=== PATIENT | female | born 1965 | race Caucasian/White ===

== ENCOUNTER 2017-04-23 21:16 | Inpatient (IN) | payer OTHER, SELFPAY ==
[2017-04-23 21:17] VITALS: BP 157/83; PULSE 107; RESP 16; TEMP 37.7; O2SAT 97; BMI 63.7
--- NOTE | 2017-04-23 22:00 | ED.VISSUMM ---
- ER Visit Summary Date of Service: 04/23/17 Chief Complaint: Bilateral lower extremity cellulitis History of Present Illness: The patient is a 52 F known history of coj-ddeaxea-cujgdvjjn diabetes, hypertension and chronic bilateral lower extremity lymphedema. On Sunday the patient started having discomfort both lower extremities and developed redness and now a fever. Was seen and started on Bactrim. Patient states the legs are getting worse and she started to have myalgias. Denies vomiting or diarrhea. No prior history of DVT. Physical Examination: Well-appearing middle-age female. Vital signs are stable. Temperature 99.8. Pulse ox 97% on room air no signs of hypoxia. HEENT exam unremarkable neck nontender no lymphadenopathy. Lungs clear to auscultation bilaterally. Heart regular rhythm rate about 105 no murmur. Abdomen morbidly obese but soft and nontender. No peritoneal signs. Moving all 4 extremities neurovascular intact. 1+ chronic lymphedema both lower extremities with cellulitis on both lower extremities from mid tibia to the ankles. No sloughing of skin. No vesicles. No signs of necrotizing fasciitis. She is neurovascular intact with normal touch sensation DP pulses. Normal range of motion. There is no inguinal lymphadenopathy. There is no streaking above the knee. Neurologic exam normal. Test Results: CBC normal white count of 10 H&H 12 and 40. No bands. Electrolytes unremarkable. Normal creatinine and gap. Blood sugar 152. Repeat exam patient is doing well at 2235. She is awaiting admission. Emergency Department Course and Treatment: Patient has bilateral lower extremity cellulitis is getting worse despite outpatient antibiotics. Patient will be started on IV Zosyn and I will speak to the hospitalist about admission. I very spoken to Dr. Perez. Treatment Plan: Admission for IV antibiotics for cellulitis Disposition: Admission Impression: Acute bilateral lower extremity cellulitis Chronic lymphedema History of hve-tcgutvt-ryozwebmy diabetes This note was generated with [employer] dictation software. It may contain incorrect words, spelling, and punctuation that were not noted in review of the chart prior to signing ED Disposition - Plan for ED Patient: Chief Complaint: Cellulitis Referrals: Laazrus Arcos MD [Primary Care Provider] -
--- NOTE | 2017-04-23 22:03 | ED.DCSUM_ITS ---
- ER Visit Summary Date of Service: 04/23/17 Chief Complaint: Bilateral lower extremity cellulitis History of Present Illness: The patient is a 52 F known history of non-insulin- dependent diabetes, hypertension and chronic bilateral lower extremity lymphedema. On Sunday the patient started having discomfort both lower extremities and developed redness and now a fever. Was seen and started on Bactrim. Patient states the legs are getting worse and she started to have myalgias. Denies vomiting or diarrhea. No prior history of DVT. Physical Examination: Well-appearing middle-age female. Vital signs are stable. Temperature 99.8. Pulse ox 97% on room air no signs of hypoxia. HEENT exam unremarkable neck nontender no lymphadenopathy. Lungs clear to auscultation bilaterally. Heart regular rhythm rate about 105 no murmur. Abdomen morbidly obese but soft and nontender. No peritoneal signs. Moving all 4 extremities neurovascular intact. 1+ chronic lymphedema both lower extremities with cellulitis on both lower extremities from mid tibia to the ankles. No sloughing of skin. No vesicles. No signs of necrotizing fasciitis. She is neurovascular intact with normal touch sensation DP pulses. Normal range of motion. There is no inguinal lymphadenopathy. There is no streaking above the knee. Neurologic exam normal. Test Results: CBC normal white count of 10 H&H 12 and 40. No bands. Electrolytes unremarkable. Normal creatinine and gap. Blood sugar 152. Repeat exam patient is doing well at 2235. She is awaiting admission. Emergency Department Course and Treatment: Patient has bilateral lower extremity cellulitis is getting worse despite outpatient antibiotics. Patient will be started on IV Zosyn and I will speak to the hospitalist about admission. I very spoken to Dr. Perez. Treatment Plan: Admission for IV antibiotics for cellulitis Disposition: Admission Impression: Acute bilateral lower extremity cellulitis Chronic lymphedema History of lya-gqaamdb-txgvkwhql diabetes This note was generated with [employer] dictation software. It may contain incorrect words, spelling, and punctuation that were not noted in review of the chart prior to signing ED Disposition - Plan for ED Patient: Chief Complaint: Cellulitis Referrals: Lazarus Arcos MD [Primary Care Provider] -
[2017-04-23 22:14] LABS: Absolute Neutrophil Count 8.9 X10^3/uL (2.0-7.7); Basophil# 0.01 X10^3/uL; Basophil% 0.1 % (0-1); Eosinophils% 1.9 % (0-5); Hematocrit 40.1 % (37-47); Hemoglobin 12.7 g/dl (12.0-15.0); Lymphocyte % 9.6 % (19-41); Mean Corp Hgb Conc 31.7 g/gl (32-36); Mean Corpuscular Hgb 29.7 pg (27.0-32.0); Mean Corpuscular Volume 93.9 fL (81-99); Mean Platelet Vol. 11.3 fl (6.2-12.0); Monocyte# 0.37 X10^3/uL; Monocyte% 3.5 % (0-10); Neutrophil # 8.86 X10^3/uL (2.7-7.7); Neutrophil % 84.6 % (47-70); Platelet Count 256 K/mm3 (150-450); RBC Distribution Width CV 14.7 % (11.6-14.6); RBC Distribution Width SD 49.8 fl (35.1-43.9); Red Blood Count 4.27 M/mm3 (4.2-5.4); White Blood Count 10.5 K/mm3 (4.4-11.0)
[2017-04-23 22:16] LABS: POSITIVE COUNT NO; POSITIVE DIFFERENTIAL NO; POSITIVE MORPHOLOGY NO
[2017-04-23 22:24] VITALS: BP 171/84; PULSE 112; RESP 18; O2SAT 98
[2017-04-23 22:26] LABS: Anion Gap 8 (5-15); BUN 21 mg/dL (7-18); BUN/Creat Ratio 25.6 RATIO (10-20); Calcium,Total 8.9 mg/dL (8.5-10.1); Chloride 100 mmol/L (98-107); Creatinine, Serum 0.82 mg/dL (0.55-1.02); EST Glomerular Filtration Rate 77 mL/min (>60); Est Glom Filt Rate - Afr Amer 94 mL/min (>60); Estimated Creatinine Clearance 74.28 ml/min; Glucose 152 mg/dL (70-110); Potassium 3.9 mmol/L (3.5-5.1); Sodium Level 138 mmol/L (136-145)
[2017-04-23] MEDS: 0.9% Normal Saline 1,000 ML 1000 ML IV (22:42)
[2017-04-23] MEDS: Ondansetron 4 MG/2 ML Vial IV (22:43)
--- NOTE | 2017-04-23 23:16 | HP.PCM_ITS ---
Problem List (1) Cellulitis Status: Acute Qualifiers: Site of cellulitis: extremity Laterality: unspecified laterality (2) Obesity, morbid, BMI 50 or higher Status: Chronic (3) Diabetes Status: Chronic Qualifiers: Diabetes mellitus complication status: with unspecified complications (4) HTN (hypertension) Status: Chronic (5) GERD (gastroesophageal reflux disease) Status: Chronic (6) Sleep apnea Status: Chronic History of Present Illness Date of Admission: 04/23/17 Chief Complaint: bilateral lower leg skin infection The patient is a 52 year old female patient who presents to the ER with worsening lower leg skin infection. She was seen yesterday in the urgent care setting and placed on Bactrim DS. She has taken three doses as an outpatient but the redness, swelling and pain has increased. Her feet and legs to mid calf are exquisitely tender. She has developed fever and chills. No blood cultures were drawn due to the fact that antibiotic therapy had already been initiated. She has comorbid conditions including diabetes and morbid obesity and lymphedema. She will be admitted to general medical floor for failure of outpatient therapy. Past Medical History Past Medical History (Chronic Problems): Chronic Problems Obesity, morbid, BMI 50 or higher (Chronic) Diabetes (Chronic) HTN (hypertension) (Chronic) GERD (gastroesophageal reflux disease) (Chronic) Sleep apnea (Chronic) Allergies ciprofloxacin [From Cipro] Allergy (Verified 04/23/17 21:17) Unknown ciprofloxacin HCl [From Cipro] Allergy (Verified 04/23/17 21:17) Unknown erythromycin base [Erythromycin Base] Allergy (Verified 04/23/17 21:17) Unknown metronidazole [From Flagyl] Allergy (Verified 04/23/17 21:17) Anaphylaxis oxycodone Allergy (Verified 04/23/17 21:17) Itching Penicillins Allergy (Verified 04/23/17 21:17) Unknown Tetracyclines Allergy (Verified 04/23/17 21:17) Unknown meloxicam [From Mobic] Adverse Reaction (Verified 04/23/17 21:17) Other states elevated bp Home Medications: Ambulatory Orders Medication Instructions Recorded Aspirin [Aspirin, Baby] 81 mg PO DAILY@0800 07/01/13 Celecoxib [Celebrex] 100 mg PO BID 07/01/13 Levothyroxine [Synthroid] 150 mcg PO DAILY 07/01/13 Valsartan/Hydrochlorothiazide 1 tablet PO DAILY 07/01/13 [Diovan Hct 160-25 MG Tablet] Loratadine [Claritin] 10 mg PO DAILY 12/12/13 Metformin HCl [Glucophage] 250 mg PO QHS 12/12/13 Lansoprazole [Prevacid] 30 mg PO BID 12/30/15 Psychiatric History: No pertinent psych hx 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 Denies: Weight Change HEENT: Denies: Head Aches, Sinus Congestion, Sinus Drainage Cardiovascular: Denies: Chest Pain, Palpitations Respiratory: Denies: Cough, Shortness of breath at rest, Sputum production Gastrointestinal: Denies: Abdominal Pain, Nausea, Vomiting Genitourinary: Denies: Dysuria Musculoskeletal: Denies: Joint Pain, Joint Tenderness Skin: Reports: Wounds. Denies: Rash Neurological: Denies: Numbness, Tingling, Focal weakness Psychiatric: Denies: Anxiety, Depression, Homicidal Ideations, Suicidal Ideations Hematologic/ Lymphatic: Denies: Easy Bruising, Easy Bleeding VTE Information - Inpt Only VTE Present on Admission: No VTE Mechan Device Prophylaxis: None VTE Pharm Prophylaxis ordered?: Yes Patient Problems: Active and Suspected Problems Cellulitis (Acute) - Physical Exam General: Alert, Oriented x3, Cooperative, - - obese HEENT: Atraumatic, Normocephalic Neck: Supple Lungs: Clear to auscultation, Normal air movement Cardiovascular: Regular rate, Regular Rhythm, Normal S1, Normal S2, No murmurs Abdomen: Bowel Sounds Present, Soft, Non Tender, Obese Extremities: Edema Skin: Ulcer/ Wound - erythema surrounding both feet and circumferentially around the legs to mid calf level Musculoskeletal: No Tenderness to Palpation of Joints or Extremities Neurological: Neuro grossly intact Psych/Mental Status: Normal Affect, Appropriate Vital Signs Temp Pulse Resp BP Pulse Ox 99.8 F H 107 H 16 157/83 H 97 04/23/17 21:17 04/23/17 21:17 04/23/17 21:17 04/23/17 21:17 04/23/17 21:17 Oxygen Delivery Method Room Air Weight: 395 lb Body Mass Index (BMI) 63.7 Laboratory Tests Past 24 Hrs 04/23/17 04/23/17 21:30 21:30 WBC 10.5 RBC 4.27 Hgb 12.7 Hct 40.1 MCV 93.9 MCH 29.7 MCHC 31.7 L RDW 14.7 H RDW Differential 49.8 H Plt Count 256 MPV 11.3 Immature Gran % (Auto) 0.300 Neut % (Auto) 84.6 H Lymph % (Auto) 9.6 L Hudspeth % (Auto) 3.5 Eos % (Auto) 1.9 Baso % (Auto) 0.1 Absolute Neuts (auto) 8.9 H Absolute Lymphs (auto) 1.00 Total Counted Not Reportable Sodium 138 Potassium 3.9 Chloride 100 Carbon Dioxide 30.0 Anion Gap 8 BUN 21 H Creatinine 0.82 Estim Creat Clear Calc 74.28 Est GFR (MDRD) Af Amer 94 Est GFR (MDRD) Non-Af 77 BUN/Creatinine Ratio 25.6 H Glucose 152 H Calcium 8.9 Assessment/Plan Active and Suspected Problems Cellulitis (Acute) Chronic Problems Obesity, morbid, BMI 50 or higher (Chronic) Diabetes (Chronic) HTN (hypertension) (Chronic) GERD (gastroesophageal reflux disease) (Chronic) Sleep apnea (Chronic) Plan - admit to medical surgical floor - IV Vancomycin and Zosyn - CBC, BMP in am - oxycodone 5mg q 6hr prn pain - continue routine home medications - LMWH for DVT prophylaxis - SSI - consider ID consult in AM Code Visit Inpatient E&M: 38493 Init Hosp L3
[2017-04-23 23:56] VITALS: PULSE 106; RESP 18; O2SAT 97
[2017-04-24 01:12] VITALS: BP 131/79; PULSE 105; RESP 20; TEMP 37.9; O2SAT 97
[2017-04-24] MEDS: Acetaminophen 325 MG Tablet 650 MG PO ×3 (01:22→17:03)
[2017-04-24 01:40] VITALS: BMI 64.4
[2017-04-24 01:50] VITALS: BMI 64.4
[2017-04-24 01:59] LABS: Hemoglobin A1c 7.3 % (4.2-6.3)
[2017-04-24] MEDS: Ketorolac 30 MG/ML Syringe IV ×3 (04:08→22:22)
[2017-04-24 05:44] VITALS: BP 91/40; PULSE 102; RESP 14; TEMP 36.9; O2SAT 96
[2017-04-24 06:33] LABS: Anion Gap 9 (5-15); BUN 23 mg/dL (7-18); BUN/Creat Ratio 24.4 RATIO (10-20); Calcium,Total 8.2 mg/dL (8.5-10.1); Chloride 102 mmol/L (98-107); Creatinine, Serum 0.94 mg/dL (0.55-1.02); EST Glomerular Filtration Rate 66 mL/min (>60); Est Glom Filt Rate - Afr Amer 80 mL/min (>60); Estimated Creatinine Clearance 64.79 ml/min; Glucose 128 mg/dL (70-110); Potassium 3.9 mmol/L (3.5-5.1); Sodium Level 136 mmol/L (136-145)
[2017-04-24] MEDS: Levothyroxine 175 MCG Tablet PO (06:37)
[2017-04-24] MEDS: Piperacil/Tazobactam 3.375 GM/50 ML ML IV (06:37)
[2017-04-24 06:50] LABS: Bedside Glucose 125 mg/dL (70-110)
[2017-04-24 08:45] VITALS: BP 117/60; PULSE 96; RESP 14; TEMP 36.8; O2SAT 93
[2017-04-24] MEDS: hydroCHLOROthiazide 25 MG Tablet PO (08:53)
[2017-04-24] MEDS: Pantoprazole Sodium 40 MG Tablet PO ×2 (08:53→22:22)
[2017-04-24] MEDS: Enoxaparin 40 MG/0.4 ML Syringe SC (08:54)
[2017-04-24 12:45] LABS: Bedside Glucose 158 mg/dL (70-110)
[2017-04-24] MEDS: Cefazolin 2 GM in 0.9% Normal Saline 100 ML IV ×2 (15:01→22:24)
[2017-04-24] MEDS: 0.9% NaCl Peripheral Flush Adult/Peds IV ×3 (15:04→15:48)
--- NOTE | 2017-04-24 15:05 | CASEMGMT ---
RN HERMELINDO Face to Face with patient for initial transition planning/care coordination assessment. RN CM introduced self and role at [facility]. Patient sitting in chair, alert and oriented. Patient willing to participate in assessment and is able to answer all questions appropriately. Care providers, pharmacy, and demographics verified. See link attached. Patient wishes to discharge home, denies need for home health at this time. Patient states she has no further needs or concerns at this time. CM to follow for discharge planning needs that may arise. Disposition Plan: Patient to discharge home with family support and follow-up plans in place.
[2017-04-24 16:48] VITALS: BP 107/41; PULSE 93; RESP 18; TEMP 36.7; O2SAT 96
[2017-04-24 17:05] LABS: Bedside Glucose 113 mg/dL (70-110)
--- NOTE | 2017-04-24 18:10 | PN_ITS ---
Patient Problems: Active and Suspected Problems Cellulitis (Acute) Subjective: Patient seen and examined today, she was admitted yesterday for cellulitis of the lower extremities, patient has a history of chronic edema in both lower extremities however. On examination today, both legs appear to be swollen, there is evidence of stasis dermatitis changes over both lower extremities, I feel there is evidence of chronic lymphedema also present. I change the patient 's antibiotics today from vancomycin and Zosyn to Ancef, I believe the patient would benefit from IV diuresis with Lasix. - Physical Exam General: Alert, Oriented x3, Cooperative, No apparent distress, Well developed, Well nourished HEENT: Atraumatic, PERRLA, EOMI, Normocephalic Oral: Moist Mucosa Neck: Supple, No JVD, Negative Carotid Bruits, No Nuchal Rigidity, Trachea Midline, Thyroid Normal Size and Texture Lungs: Clear to auscultation, Normal air movement, No rhonchi, No wheeze, No rales Cardiovascular: Regular rate, Regular Rhythm, Normal S1, Normal S2, No murmurs, No Ectopic Activity, PMI Normal, No rub noted, No Gallop Abdomen: Bowel Sounds Present, Soft, Non Tender, Non-Distended, Obese, No hernias noted Extremities: No clubbing, No cyanosis, Capillary Refill Less than 3 Seconds, Edema - Marked nonpitting edema is noted over both lower legs, there is redness of the skin noted over both lower legs which is diffuse Skin: No breakdown, Rash Present - There are areas of redness diffuse over the patient's lower legs bilaterally, these areas are also warm to the touch but not overly hot Musculoskeletal: No Tenderness to Palpation of Joints or Extremities Neurological: Cranial nerves II-XII grossly intact, Neuro grossly intact, Muscle tone normal, Sensory exam intact to light touch and pain Psych/Mental Status: Normal Affect, Appropriate, Alert and oriented to time, place, person, mood and affect Vital Signs Temp Pulse Resp BP Pulse Ox 98.0 F 93 18 107/41 L 96 04/24/17 16:48 04/24/17 16:48 04/24/17 16:48 04/24/17 16:48 04/24/17 16:48 Oxygen Delivery Method Room Air Weight: 181 kg Body Mass Index (BMI) 64.4 Intake and Output for Last 24 Hours 01/04/23/17 04/24/17 23:59 23:59 23:59 Intake Total 1235 / 1235 Balance 1235 / 1235 Laboratory Tests Past 24 Hrs 04/24/17 04/24/17 01:34 05:16 Sodium 136 Potassium 3.9 Chloride 102 Carbon Dioxide 25.0 Anion Gap 9 BUN 23 H Creatinine 0.94 Estim Creat Clear Calc 64.79 Est GFR (MDRD) Af Amer 80 Est GFR (MDRD) Non-Af 66 BUN/Creatinine Ratio 24.4 H Glucose 128 H Hemoglobin A1c 7.3 H Calcium 8.2 L POC Glucose 04/24/17 04/24/17 04/24/17 16:45 11:30 06:35 POC Glucose 113 H 158 H 125 H Assessment/Plan Active and Suspected Problems Cellulitis (Acute) #1 cellulitis of the lower legs-patient will continue on IV Ancef for now #2 severe lymphedema of both lower legs with fluid retention-patient was placed on Lasix 40 mg IV every 8 hours and oral potassium, BMP will be repeated in the morning, she was taken off her hydrochlorothiazide #3 super morbid obesity #4 type 2 diabetes-monitor blood sugars #5 hypertension-patient's valsartan will be held due to her diuresis #6 hypothyroidism Code Visit Inpatient E&M: 13621 Subs Hosp L2
--- NOTE | 2017-04-24 18:18 | ECHOCS_ITS ---
Reason For Study: PHTN Procedure This was a 2D Doppler, Color Flow transthoracic echocardiogram. The study was technically difficult. Contrast injection was performed. Exam performed portable in patient room. Left Ventricle Normal size and thickness. The estimated ejection fraction is 65 %. Normal diastology for age. No regional wall motion abnormalities noted. Right Ventricle Normal size and thickness. Normal systolic function. Atria Normal left atrium. Normal right atrium. Normal atrial septum. Mitral Valve The mitral valve is structurally normal. No prolapse or stenosis seen. Tricuspid Valve Normal tricuspid valve. Unable to estimate RV systolic pressure/pulmonary artery pressure due to technically difficult study. Aortic Valve Normal aortic valve. Trisinus/trileaflet aortic valve. Pulmonic Valve The pulmonic valve is not well visualized. Great Vessels Normal aortic root. Normal arch. Normal inferior vena cava. Inferior vena cava collapse with sniff. Pericardium/Pleural No pericardial effusion. Medication Definity0.5ml given slow IV push to enhance endocardial definition. MMode/2D Measurements & Calculations LVIDd: 4.9 cm IVSd: 1.1 cm Ao root diam: 3.4 cm LVIDs: 3.5 cm LVPWd: 1.1 cm LA dimension: 4.2 cm RVDd: 3.8 cm FS: 29.3 % LAV(MOD-bp): 72.7 ml LA A4 area: 22.9 cm2 RA A4 area: 15.4 cm2 LAV(MOD-bp) Indexed: 27.1 ml/m2 LAV(MOD-sp2): 70.0 ml LAV(MOD-sp4): 75.2 ml Doppler Measurements & Calculations MV E max jerrell: 100.3 cm/sec Lat Peak E' Jerrell: 16.6 cm/sec Med Peak E' Jerrell: 11.3 cm/sec MV A max jerrell: 87.1 cm/sec E/E' lat: 6.1 E/E' med: 8.9 MV E/A: 1.2 Ao V2 max: 180.5 cm/sec LV V1 max: 125.6 cm/sec PA V2 max: 122.3 cm/sec Ao max P.0 mmHg LV V1 max P.3 mmHg Interpretation Summary The estimated ejection fraction is 65 %. Normal diastology for age. Unable to estimate RV systolic pressure/pulmonary artery pressure due to technically difficult study. There is no comparison study available. The study was technically difficult. Contrast injection was performed. Ordering Physician: Heath Blackwood Referring Physician: Lazarus Arcos Performed By: Selena Roberts RDCS, RVT
[2017-04-24 20:26] VITALS: BP 99/62; PULSE 90; RESP 16; TEMP 37.1; O2SAT 97
[2017-04-24] MEDS: Loratadine 10 MG Tablet PO (22:22)
[2017-04-24] MEDS: Furosemide 40 MG/4 ML Vial IV (22:23)
[2017-04-24 22:46] LABS: Bedside Glucose 133 mg/dL (70-110)
[2017-04-25 03:20] VITALS: BP 98/44; PULSE 81; RESP 18; TEMP 37.1; O2SAT 98
[2017-04-25] MEDS: Acetaminophen 325 MG Tablet 650 MG PO ×2 (04:26→14:20)
[2017-04-25] MEDS: Levothyroxine 175 MCG Tablet PO (06:25)
[2017-04-25] MEDS: Cefazolin 2 GM in 0.9% Normal Saline 100 ML IV ×3 (06:25→21:18)
[2017-04-25] MEDS: Furosemide 40 MG/4 ML Vial IV (06:25)
[2017-04-25 07:36] LABS: Bedside Glucose 140 mg/dL (70-110)
[2017-04-25 07:37] LABS: Anion Gap 7 (5-15); BUN 25 mg/dL (7-18); BUN/Creat Ratio 22.1 RATIO (10-20); Calcium,Total 8.2 mg/dL (8.5-10.1); Chloride 103 mmol/L (98-107); Creatinine, Serum 1.13 mg/dL (0.55-1.02); EST Glomerular Filtration Rate 54 mL/min (>60); Est Glom Filt Rate - Afr Amer 65 mL/min (>60); Glucose 134 mg/dL (70-110); Sodium Level 137 mmol/L (136-145)
[2017-04-25] MEDS: Pantoprazole Sodium 40 MG Tablet PO ×2 (07:53→21:21)
[2017-04-25] MEDS: Enoxaparin 40 MG/0.4 ML Syringe SC (07:54)
[2017-04-25 09:40] VITALS: BP 120/73; PULSE 86; TEMP 36.8; O2SAT 96
[2017-04-25 09:45] VITALS: O2SAT 96
[2017-04-25 11:40] LABS: Bedside Glucose 159 mg/dL (70-110)
[2017-04-25 14:04] VITALS: BP 133/83; PULSE 89; TEMP 36.7; O2SAT 94
[2017-04-25] MEDS: 0.9% NaCl Peripheral Flush Adult/Peds IV (15:07)
--- NOTE | 2017-04-25 17:39 | PN_ITS ---
Patient Problems: Active and Suspected Problems Cellulitis (Acute) Subjective: Patient was seen and examined today, she states her discomfort in her left lower leg is much better she still has some discomfort in her right lower leg however. Patient's creatinine has risen since yesterday, I decided to stop her IV Lasix and place her on oral Lasix starting tomorrow. On exam today, I feel that she still has some redness in both lower legs, I am unsure whether some of this could be secondary to chronic fluid retention but I think it is best to continue to treat her for cellulitis. I have written for Agustin wraps to her lower legs - Physical Exam General: Alert, Oriented x3, Cooperative, No apparent distress, Well developed, Well nourished HEENT: Atraumatic, PERRLA, EOMI, Normocephalic Oral: Moist Mucosa Neck: Supple, No JVD, No Nuchal Rigidity, Trachea Midline, Thyroid Normal Size and Texture Lungs: Clear to auscultation, Normal air movement, No rhonchi, No wheeze, No rales Cardiovascular: Regular rate, Regular Rhythm, Normal S1, Normal S2, No murmurs, No Ectopic Activity, PMI Normal, No rub noted, No Gallop Abdomen: Bowel Sounds Present, Soft, Non Tender, Non-Distended, Obese, No hernias noted Extremities: Capillary Refill Less than 3 Seconds, Edema - Generalized edema is noted over the patient's lower legs Skin: No breakdown, Rash Present - There is redness noted to both lower legs- worse on the right, there is also stasis dermatitis changes which appear to be chronic especially over the right lower leg Neurological: Cranial nerves II-XII grossly intact, Neuro grossly intact, Sensory exam intact to light touch and pain, Coordination normal Psych/Mental Status: Normal Affect, Appropriate, Alert and oriented to time, place, person, mood and affect Vital Signs Temp Pulse Resp BP Pulse Ox 98.0 F 89 18 133/83 H 94 04/25/17 14:04 04/25/17 14:04 04/25/17 03:20 04/25/17 14:04 04/25/17 14:04 Oxygen Delivery Method Room Air Weight: 181 kg Body Mass Index (BMI) 64.4 Intake and Output for Last 24 Hours 04/23/17 04/24/17 04/25/17 23:59 23:59 23:59 Intake Total 1235 / 1235 1485 / 1485 Output Total 400 / 400 Balance 1235 / 1235 1085 / 1085 Laboratory Tests Past 24 Hrs 04/25/17 07:00 Sodium 137 Potassium 4.0 Chloride 103 Carbon Dioxide 27.0 Anion Gap 7 BUN 25 H Creatinine 1.13 H Estim Creat Clear Calc 53.90 Est GFR (MDRD) Af Amer 65 Est GFR (MDRD) Non-Af 54 L BUN/Creatinine Ratio 22.1 H Glucose 134 H Calcium 8.2 L POC Glucose 04/25/17 04/25/17 04/24/17 11:26 06:24 22:21 POC Glucose 159 H 140 H 133 H Assessment/Plan Active and Suspected Problems Cellulitis (Acute) #1 cellulitis of the lower legs-patient will continue on IV Ancef for now #2 severe lymphedema of both lower legs with fluid retention-again patient was changed to oral Lasix starting tomorrow #3 super morbid obesity-complicates care and clinical outcome #4 type 2 diabetes-monitor blood sugars #5 hypertension-patient's valsartan will be started again tomorrow at a lower dose than her usual outpatient dose #6 hypothyroidism Code Visit Inpatient E&M: 38846 Subs Hosp L2
[2017-04-25 17:46] LABS: Bedside Glucose 129 mg/dL (70-110)
[2017-04-25] MEDS: Ketorolac 30 MG/ML Syringe IV (19:51)
[2017-04-25 19:57] VITALS: BP 142/84; PULSE 84; RESP 20; TEMP 37.1; O2SAT 96
[2017-04-25] MEDS: Loratadine 10 MG Tablet PO (21:21)
[2017-04-25 21:41] LABS: Bedside Glucose 130 mg/dL (70-110)
[2017-04-26 03:00] VITALS: BP 130/74; PULSE 83; RESP 18; TEMP 36.9; O2SAT 95
[2017-04-26] MEDS: Acetaminophen 325 MG Tablet 650 MG PO ×2 (05:19→11:23)
[2017-04-26] MEDS: Levothyroxine 175 MCG Tablet PO (05:20)
[2017-04-26] MEDS: Cefazolin 2 GM in 0.9% Normal Saline 100 ML IV (05:21)
[2017-04-26 06:30] LABS: Anion Gap 9 (5-15); BUN 27 mg/dL (7-18); BUN/Creat Ratio 28.2 RATIO (10-20); Calcium,Total 8.2 mg/dL (8.5-10.1); Chloride 103 mmol/L (98-107); Creatinine, Serum 0.96 mg/dL (0.55-1.02); EST Glomerular Filtration Rate 65 mL/min (>60); Est Glom Filt Rate - Afr Amer 79 mL/min (>60); Estimated Creatinine Clearance 63.44 ml/min; Glucose 127 mg/dL (70-110); Potassium 4.1 mmol/L (3.5-5.1); Sodium Level 137 mmol/L (136-145)
[2017-04-26 06:55] LABS: Bedside Glucose 123 mg/dL (70-110)
[2017-04-26 09:00] VITALS: BP 119/68; PULSE 84; RESP 18; TEMP 36.6; O2SAT 95
[2017-04-26] MEDS: Pantoprazole Sodium 40 MG Tablet PO (09:07)
[2017-04-26] MEDS: Furosemide 40 MG Tablet PO (09:07)
[2017-04-26] MEDS: Enoxaparin 40 MG/0.4 ML Syringe SC (09:08)
[2017-04-26 09:21] LABS: Bedside Glucose 124 mg/dL (70-110)
[2017-04-26 11:46] LABS: Bedside Glucose 158 mg/dL (70-110)
--- NOTE | 2017-04-26 12:42 | PCM.DC ---
- Discharge Diagnoses Current Active Problems: Current Active and Chronic Problems Cellulitis (Acute) You will use the following diet at home:: No restrictions Your food should be the consistency of: Regular Your liquids should be the consistency of: Regular/Thin Discharge Activity: Return to Normal Activity Weight Bearing Status: Full weight bearing Additional Instructions: GENO WRAPS TO LEGS Allergies/Adverse Reactions: Allergies ciprofloxacin [From Cipro] Allergy (Verified 04/24/17:26) Itching ciprofloxacin HCl [From Cipro] Allergy (Verified 04/23/17 21:17) Unknown erythromycin base [Erythromycin Base] Allergy (Verified 04/24/17:) Nausea metronidazole [From Flagyl] Allergy (Verified 04/23/17 21:17) Anaphylaxis oxycodone Allergy (Verified 04/23/17:) Itching Penicillins Allergy (Verified 04/24/17:) swelling (when she was an infant) Tetracyclines Allergy (Verified 04/24/17:) Nausea meloxicam [From Mobic] Adverse Reaction (Verified 04/24/17:26) elevates BP states elevated bp Medications to take at Discharge Aspirin [Aspirin, Baby] 81 mg PO DAILY@0800 07/01/13 Celecoxib [Celebrex] 100 mg PO BID 07/01/13 Levothyroxine [Synthroid] 175 mcg PO DAILY 07/01/13 Loratadine [Claritin] 10 mg PO DAILY 12/12/13 Metformin HCl [Glucophage] 500 mg PO BREAKFAST 12/12/13 Lansoprazole [Prevacid] 30 mg PO DAILY 12/30/15 Bupropion HCl [Wellbutrin Sr] 150 mg PO BID 04/24/17 Cefadroxil Hydrate [Duricef] 1,000 mg PO BID #30 cap 04/26/17 Furosemide [Lasix] 40 mg PO DAILY #30 tab 04/26/17 Valsartan [Diovan] 160 mg PO DAILY #60 tab 04/26/17 The following prescriptions were given: Furosemide [Lasix] 40 mg PO DAILY #30 tab Valsartan [Diovan] 160 mg PO DAILY #60 tab Cefadroxil Hydrate [Duricef] 1,000 mg PO BID #30 cap Primary Care Physician: Lazarus Arcos MD [Primary Care Provider] - Please follow up with your Primary Care Physician in: 7-10 DAYS
--- NOTE | 2017-04-29 14:29 | PCM.DC.SUM ---
Discharge Date and Diagnosis Date of Admission: 04/23/17 Date of Discharge: 04/26/17 - Primary Discharge Diagnosis #1 bilateral lower leg gdaxvawvbo-zkph-qhyahntg bacterial #2 chronic lymphedema of the lower legs #3 obstructive sleep apnea #4 super morbid obesity #5 type 2 diabetes #6 hypertension #7 hypothyroidism - Secondary Discharge Diagnosis Chronic Problems Obesity, morbid, BMI 50 or higher (Chronic) Diabetes (Chronic) HTN (hypertension) (Chronic) GERD (gastroesophageal reflux disease) (Chronic) Sleep apnea (Chronic) Hospital Course and Treatment Operations: None, cholecystecomy Procedures: 2-D Echocardiogram Summary of Care Provided: The patient is a 52 year old F was seen in the emergency room at [facility] with a chief complaint of increased swelling, redness, and pain in the lower legs bilaterally. Patient also complained of a fever. Patient was seen by her PCP and placed on Bactrim, she stated that the Bactrim did not help and symptoms worsen so she came to the ER for evaluation. Evaluation in the ER included a CBC which showed a normal white blood cell count, chemistry panel was unremarkable except for a blood sugar of 152. Examination of the lower legs revealed him to be reddened, tender, and swollen. Patient was admitted for lower leg cellulitis to [place] [address], placed on IV antibiotics, she was also placed on IV diuretics due to concerns of excessive fluid retention in the lower legs. Lower legs were also wrapped with an Agustin wrap. Patient's condition improved over the next several days, echocardiogram was obtained to rule out pulmonary hypertension but the echocardiogram was a poor study and that it was not able to estimate right ventricular pressure. Patient's ejection fraction was preserved. On 04/26/17, patient was seen and examined felt to be in stable condition for discharge home Discharge Activity: Return to Normal Activity Weight Bearing Status: Full weight bearing Home Medications: Medications to take at Discharge Aspirin [Aspirin, Baby] 81 mg PO DAILY@0800 07/01/13 Celecoxib [Celebrex] 100 mg PO BID 07/01/13 Levothyroxine [Synthroid] 175 mcg PO DAILY 07/01/13 Loratadine [Claritin] 10 mg PO DAILY 12/12/13 Metformin HCl [Glucophage] 500 mg PO BREAKFAST 12/12/13 Lansoprazole [Prevacid] 30 mg PO DAILY 12/30/15 Bupropion HCl [Wellbutrin Sr] 150 mg PO BID 04/24/17 Cefadroxil Hydrate [Duricef] 1,000 mg PO BID #30 cap 04/26/17 Furosemide [Lasix] 40 mg PO DAILY #30 tab 04/26/17 Valsartan [Diovan] 160 mg PO DAILY #60 tab 04/26/17 Following Prescrptions Were Given to Patient: Furosemide [Lasix] 40 mg PO DAILY #30 tab Valsartan [Diovan] 160 mg PO DAILY #60 tab Cefadroxil Hydrate [Duricef] 1,000 mg PO BID #30 cap Primary Care Physician: Lazarus Arcos MD [Primary Care Provider] - Please follow up with your Primary Care Physician in: 7-10 DAYS Disposition: Home Minutes spent on discharge:: 34 Patient Condition:: Stable Meaningful Use Info Meaningful Use Diagnoses (Choose all that apply): None applicable Code Visit Inpatient E&M: 36221 Disch Hosp
--- NOTE | 2017-04-29 14:33 | DS.PCM_ITS ---
Discharge Date and Diagnosis Date of Admission: 04/23/17 Date of Discharge: 04/26/17 - Primary Discharge Diagnosis #1 bilateral lower leg iktaiistah-zyey-tdschsbv bacterial #2 chronic lymphedema of the lower legs #3 obstructive sleep apnea #4 super morbid obesity #5 type 2 diabetes #6 hypertension #7 hypothyroidism - Secondary Discharge Diagnosis Chronic Problems Obesity, morbid, BMI 50 or higher (Chronic) Diabetes (Chronic) HTN (hypertension) (Chronic) GERD (gastroesophageal reflux disease) (Chronic) Sleep apnea (Chronic) Hospital Course and Treatment Operations: None, cholecystecomy Procedures: 2-D Echocardiogram Summary of Care Provided: The patient is a 52 year old F was seen in the emergency room at [facility] with a chief complaint of increased swelling, redness, and pain in the lower legs bilaterally. Patient also complained of a fever. Patient was seen by her PCP and placed on Bactrim, she stated that the Bactrim did not help and symptoms worsen so she came to the ER for evaluation. Evaluation in the ER included a CBC which showed a normal white blood cell count , chemistry panel was unremarkable except for a blood sugar of 152. Examination of the lower legs revealed him to be reddened, tender, and swollen. Patient was admitted for lower leg cellulitis to [place] [address], placed on IV antibiotics, she was also placed on IV diuretics due to concerns of excessive fluid retention in the lower legs. Lower legs were also wrapped with an Agustin wrap. Patient's condition improved over the next several days, echocardiogram was obtained to rule out pulmonary hypertension but the echocardiogram was a poor study and that it was not able to estimate right ventricular pressure. Patient's ejection fraction was preserved. On 04/26/17, patient was seen and examined felt to be in stable condition for discharge home Discharge Activity: Return to Normal Activity Weight Bearing Status: Full weight bearing Home Medications: Medications to take at Discharge Aspirin [Aspirin, Baby] 81 mg PO DAILY@0800 07/01/13 Celecoxib [Celebrex] 100 mg PO BID 07/01/13 Levothyroxine [Synthroid] 175 mcg PO DAILY 07/01/13 Loratadine [Claritin] 10 mg PO DAILY 12/12/13 Metformin HCl [Glucophage] 500 mg PO BREAKFAST 12/12/13 Lansoprazole [Prevacid] 30 mg PO DAILY 12/30/15 Bupropion HCl [Wellbutrin Sr] 150 mg PO BID 04/24/17 Cefadroxil Hydrate [Duricef] 1,000 mg PO BID #30 cap 04/26/17 Furosemide [Lasix] 40 mg PO DAILY #30 tab 04/26/17 Valsartan [Diovan] 160 mg PO DAILY #60 tab 04/26/17 Following Prescrptions Were Given to Patient: Furosemide [Lasix] 40 mg PO DAILY #30 tab Valsartan [Diovan] 160 mg PO DAILY #60 tab Cefadroxil Hydrate [Duricef] 1,000 mg PO BID #30 cap Primary Care Physician: Lazarus Arcos MD [Primary Care Provider] - Please follow up with your Primary Care Physician in: 7-10 DAYS Disposition: Home Minutes spent on discharge:: 34 Patient Condition:: Stable Meaningful Use Info Meaningful Use Diagnoses (Choose all that apply): None applicable Code Visit Inpatient E&M: 60066 Disch Hosp
== END 2017-04-26 13:35 | disposition home or self-care (01) | DRG 603 ==
LOC: ED 21:56 → MS3 23:43
PROVIDERS: Admitting Provider Family Medicine; Emergency Provider Emergency Medicine; Family Provider Internal Medicine; PCP Internal Medicine; Visit Provider Internal Medicine
DX: L03.116 Cellulitis of left lower limb (principal); E66.01 Morbid (severe) obesity due to excess calories; E11.9 Type 2 diabetes mellitus without complications; E03.9 Hypothyroidism, unspecified; G47.33 Obstructive sleep apnea (adult) (pediatric); B96.89 Other specified bacterial agents as the cause of diseases classified elsewhere; Z68.43 Body mass index [BMI] 50.0-59.9, adult; L03.115 Cellulitis of right lower limb; I89.0 Lymphedema, not elsewhere classified; I10 Essential (primary) hypertension; K21.9 Gastro-esophageal reflux disease without esophagitis; Z79.82 Long term (current) use of aspirin
CPT/HCPCS: 36415; 80048; 82962; 83036; 85025; 93306; 97802; 99285; J7030; J7040; Q9957; A4216; C8929; J1940; J2405

== ENCOUNTER 2017-11-08 14:52 | Emergency (ER) | payer OTHER, SELFPAY ==
[2017-11-08 14:52] VITALS: BP 118/82; BP 123/75; PULSE 64; PULSE 70; RESP 16; RESP 18; TEMP 36.4; TEMP 36.9; O2SAT 98; BMI 61.8
--- NOTE | 2017-11-08 15:09 | VDLE_ITS ---
Reason For Study: LEG SWELLING RIGHT LEFT CFV is compressible, spontaneous, phasic, CFV is compressible, spontaneous, phasic, competent and demonstrates normal competent, and demonstrates normal augmentation. augmentation. FV is compressible, spontaneous, phasic, FV is compressible, spontaneous, phasic, competent and demonstrates normal competent and demonstrates normal augmentation. augmentation. POP V is compressible, spontaneous, phasic, POP V is compressible, spontaneous, phasic, competent and demonstrates normal competent and demonstrates normal augmentation. augmentation. T/P Trunk is compressible. T/P Trunk is compressible. PTV is compressible. PTV is compressible. GSV absent. GSV not visualized. Procedure Exam performed portable in ED. Technically difficult due to body habitus. Jefe PER V not visualized. PTV imaged distally only. Interpretation Summary Deep veins of the lower extremities are bilaterally patent and compressible segmentally. There is no evidence of deep vein thrombosis on either side. Valvular competence appears intact within the proximal deep venous systems bilaterally. The right great saphenous vein is absent. The left great saphenous vein was not visualized. The peroneal veins and proximal posterior tibial veins were not visualized on either side. Ordering Physician: Sherley Berg Referring Physician: Lazarus Arcos Performed By: Divine Alarcon RVT
--- NOTE | 2017-11-08 15:12 | ED.DCSUM_ITS ---
- ER Visit Summary Date of Service: 11/08/17 Chief Complaint: Bilateral lower extremity redness History of Present Illness: The patient is a 52 F presenting with bilateral lower extremity redness. She states this started 2 days ago. She was concerned that she may be getting cellulitis. She had cellulitis in April. She has had no recent antibiotics. She has bilateral calf pain and redness. Denies chest pain or shortness of breath. Denies PE/DVT risk factors. Denies other complaints. Physical Examination: Vitals are stable. Patient is afebrile. Alert no acute distress. HEENT exam is unremarkable. Neck is supple. Lungs are clear and equal bilaterally. Heart is regular rate and rhythm. Extremities mild bilateral calf tenderness, mild erythema around the right lower calf and ankle. Active full range of motion. Normal pulses bilaterally. Skin is warm and dry. No focal neurologic deficit. Remainder of exam is unremarkable. Emergency Department Course and Treatment: CBC, chemistries unremarkable. Bilateral venous Doppler shows no evidence of DVT. Patient was given a dose of Ancef IV. She will be discharged with Keflex. She is advised to follow-up with her primary care physician. Advised return to ED for worsening complaints. Disposition: Discharge home Impression: Right lower extremity cellulitis This note was generated with [employer] dictation software. It may contain incorrect words, spelling, and punctuation that were not noted in review of the chart prior to signing ED Disposition - Plan for ED Patient: Chief Complaint: Cellulitis Referrals: Lazarus Arcos MD [Primary Care Provider] -
[2017-11-08 15:33] LABS: Absolute Neutrophil Count 6.3 X10^3/uL (2.0-7.7); Basophil# 0.01 X10^3/uL; Basophil% 0.1 % (0-1); Eosinophil# 0.32 X10^3/uL; Eosinophils% 3.7 % (0-5); Hematocrit 40.3 % (37-47); Hemoglobin 12.5 g/dl (12.0-15.0); Lymphocyte % 16.2 % (19-41); Mean Corpuscular Hgb 28.2 pg (27.0-32.0); Mean Corpuscular Volume 90.8 fL (81-99); Monocyte# 0.55 X10^3/uL; Monocyte% 6.4 % (0-10); Neutrophil # 6.34 X10^3/uL (2.7-7.7); Neutrophil % 73.4 % (47-70); Platelet Count 251 K/mm3 (150-450); RBC Distribution Width CV 15.3 % (11.6-14.6); RBC Distribution Width SD 50.9 fl (35.1-43.9); Red Blood Count 4.44 M/mm3 (4.2-5.4); White Blood Count 8.6 K/mm3 (4.4-11.0)
[2017-11-08 15:35] LABS: POSITIVE COUNT NO; POSITIVE DIFFERENTIAL NO; POSITIVE MORPHOLOGY NO
[2017-11-08 15:53] LABS: Anion Gap 10 (5-15); BUN 22 mg/dL (7-18); Calcium,Total 9.3 mg/dL (8.5-10.1); Chloride 105 mmol/L (98-107); Creatinine, Serum 0.85 mg/dL (0.55-1.02); EST Glomerular Filtration Rate 75 mL/min (>60); Est Glom Filt Rate - Afr Amer 90 mL/min (>60); Estimated Creatinine Clearance 71.65 ml/min; Glucose 103 mg/dL (74-106); Potassium 3.8 mmol/L (3.5-5.1); Sodium Level 142 mmol/L (136-145)
--- NOTE | 2017-11-08 16:10 | ED.DEP ---
ED Disposition - Plan for ED Patient: Chief Complaint: Cellulitis Instructions: Discharge Instructions for Cellulitis Prescriptions: Cephalexin [Keflex] 500 mg PO Q6 #40 capsule Referrals: Lazarus Arcos MD [Primary Care Provider] -
[2017-11-08 16:52] VITALS: BP 126/82; PULSE 68; RESP 18; O2SAT 98
[2017-11-08] MEDS: Cefazolin 1 GM/50 ML BAG IV (17:08)
== END 2017-11-08 17:45 | disposition home or self-care (01) ==
LOC: ED 16:07
PROVIDERS: Emergency Provider Emergency Medicine; Family Provider Internal Medicine; PCP Internal Medicine
DX: L03.115 Cellulitis of right lower limb (principal); K21.9 Gastro-esophageal reflux disease without esophagitis; E11.9 Type 2 diabetes mellitus without complications; I10 Essential (primary) hypertension
CPT/HCPCS: 80048; 85025; 93970; 99283; J7050; A4216

== ENCOUNTER 2017-11-15 17:53 | Inpatient (IN) | payer OTHER, SELFPAY ==
[2017-11-15 17:55] VITALS: BP 149/110; PULSE 80; RESP 22; TEMP 37.2; O2SAT 99; BMI 61.8
[2017-11-15] MEDS: Ondansetron 4 MG/2 ML Vial IV (18:37)
[2017-11-15] MEDS: 0.9% Normal Saline 1,000 ML 150 ML IV (18:37)
[2017-11-15 18:38] LABS: Absolute Lymphocyte Count 0.61 X10^3/ul (0.83-4.51); Absolute Neutrophil Count 7.3 X10^3/uL (2.0-7.7); Basophil# 0.01 X10^3/uL; Basophil% 0.1 % (0-1); Eosinophil# 0.17 X10^3/uL; Hematocrit 39.6 % (37-47); Hemoglobin 12.3 g/dl (12.0-15.0); Lymphocyte # 0.61 X10^3/ul (4.0); Lymphocyte % 7.3 % (19-41); Mean Corp Hgb Conc 31.1 g/gl (32-36); Mean Corpuscular Hgb 28.1 pg (27.0-32.0); Mean Corpuscular Volume 90.4 fL (81-99); Monocyte# 0.21 X10^3/uL; Monocyte% 2.5 % (0-10); Neutrophil # 7.31 X10^3/uL (2.7-7.7); Neutrophil % 87.9 % (47-70); POSITIVE COUNT NO; POSITIVE DIFFERENTIAL NO; POSITIVE MORPHOLOGY NO; Platelet Count 219 K/mm3 (150-450); RBC Distribution Width CV 15.3 % (11.6-14.6); RBC Distribution Width SD 50.4 fl (35.1-43.9); Red Blood Count 4.38 M/mm3 (4.2-5.4); White Blood Count 8.3 K/mm3 (4.4-11.0)
[2017-11-15] MEDS: Morphine 4 MG/ML Syringe IV (18:38)
[2017-11-15 19:02] LABS: Anion Gap 8 (5-15); BUN 24 mg/dL (7-18); BUN/Creat Ratio 25.7 RATIO (10-20); Chloride 105 mmol/L (98-107); Creatinine, Serum 0.93 mg/dL (0.55-1.02); EST Glomerular Filtration Rate 67 mL/min (>60); Est Glom Filt Rate - Afr Amer 81 mL/min (>60); Estimated Creatinine Clearance 65.49 ml/min; Glucose 147 mg/dL (74-106); Sodium Level 139 mmol/L (136-145)
[2017-11-15 19:08] LABS: Lactic Acid 1.5 mmol/L (0.4-2.0)
--- NOTE | 2017-11-15 19:46 | ED.VISSUMM ---
- ER Visit Summary Date of Service: 11/15/17 Chief Complaint: [Redness and swelling both legs] History of Present Illness: The patient is a 52 F [presents the emergency department complaint of redness and swelling in both legs that started a week ago. Patient was seen in the emergency department initially and had 1 dose of IV antibiotics and started on Keflex. Patient not initially she might be getting a little bit better but then continue to have increased pain and swelling in her legs and was seen by her primary care physician yesterday and started on Bactrim as well. Patient had fever yesterday of 200.6 as well as chills. Patient complains of joint aches and pains. Patient states it is hard to walk secondary to pain. Patient does complain of a headache. Patient states that she has had admissions in the past for cellulitis.] Physical Examination: [HEENT-PERRLA, EOMI. Cranial nerves II through XII grossly intact. TMs clear. Mucous membranes moist. No adenopathy. Cardiovascular-regular rate and rhythm without murmur or ectopy Lungs-clear to auscultation, chest wall stable without crepitus or subcu emphysema Abdomen-normoactive bowel sounds, soft, nontender, no rebound or rigidity, no peritoneal signs. Extremities-intact ?4, normal range of motion, normal pulses, atraumatic]. Patient has erythema and edema both lower extremities below the knees extending onto the feet. Legs are warm to touch. Patient has normal pulses. Test Results: [CBC with differential obtained showed a white count of 8.3, hemoglobin 12, hematocrit 39.6, platelet 219. Chemistries unremarkable. Lactate was 1.5.] Emergency Department Course and Treatment: [Patient was started on vancomycin and clindamycin. As she does have allergies to several antibiotics including penicillin.] Treatment Plan: [Admit for IV antibiotics] Disposition: [Admit] Impression: Cellulitis bilateral lower extremities with failed outpatient therapy [] This note was generated with [employer] dictation software. It may contain incorrect words, spelling, and punctuation that were not noted in review of the chart prior to signing ED Disposition - Plan for ED Patient: Chief Complaint: Cellulitis Referrals: Lazarus Arcos MD [Primary Care Provider] -
[2017-11-15 19:52] VITALS: BMI 61.8
--- NOTE | 2017-11-15 19:54 | PCM.HP.STD ---
Problem List (1) Cellulitis Status: Acute Qualifiers: Site of cellulitis: extremity Laterality: unspecified laterality (2) Sleep apnea Status: Chronic (3) GERD (gastroesophageal reflux disease) Status: Chronic (4) HTN (hypertension) Status: Chronic (5) Diabetes Status: Chronic Qualifiers: Diabetes mellitus complication status: with unspecified complications (6) Obesity, morbid, BMI 50 or higher Status: Chronic History of Present Illness Date of Admission: 11/15/17 Chief Complaint: Bilateral leg pain and redness ?1 week The patient is a 52 year old F with a significant history of hypertension, GERD, sleep apnea, hypothyroidism, diabetes, who presents with a one-week history of redness and pain at the bilateral lower extremities. Patient was at the emergency department about 1 week ago for the same symptoms. She was diagnosed with bilateral leg cellulitis and was given IV antibiotics and was discharged home on Keflex. Although patient was taking her Keflex she continued to have bilateral lower leg redness and pain for which reason she went to see her PCP. Her PCP added Bactrim to her regimen. While taking both Keflex and Bactrim his symptoms described above continued to persist. Associated with her symptoms is a fever, chills, malaise, headache and pain in all joints and some mild sore throat. Her temperature at home was 100.6. The patient reports being treated for a previous cellulitis in April of this year. Past Medical History Past Medical History (Chronic Problems): Chronic Problems Sleep apnea (Chronic) GERD (gastroesophageal reflux disease) (Chronic) HTN (hypertension) (Chronic) Diabetes (Chronic) Obesity, morbid, BMI 50 or higher (Chronic) Allergies ciprofloxacin [From Cipro] Allergy (Verified 11/15/17 17:58) Itching ciprofloxacin HCl [From Cipro] Allergy (Verified 11/15/17 17:58) Unknown erythromycin base [Erythromycin Base] Allergy (Verified 11/15/17 17:58) Nausea metronidazole [From Flagyl] Allergy (Verified 11/15/17 17:58) Anaphylaxis oxycodone Allergy (Verified 11/15/17 17:58) Itching Penicillins Allergy (Verified 11/15/17 17:58) swelling (when she was an infant) Tetracyclines Allergy (Verified 11/15/17 17:58) Nausea meloxicam [From Mobic] Adverse Reaction (Verified 11/15/17 17:58) elevates BP states elevated bp Home Medications: Ambulatory Orders Medication Instructions Recorded Aspirin [Aspirin, Baby] 81 mg PO DAILY@0800 07/01/13 Celecoxib [Celebrex] 100 mg PO BID 07/01/13 Levothyroxine [Synthroid] 175 mcg PO DAILY 07/01/13 Metformin HCl [Glucophage] 500 mg PO BREAKFAST 12/12/13 Lansoprazole [Prevacid] 30 mg PO DAILY 12/30/15 Bupropion HCl [Wellbutrin Sr] 150 mg PO BID 04/24/17 Atorvastatin Calcium [Lipitor] 40 mg PO QHS 11/15/17 Cephalexin [Keflex] 500 mg PO Q6 11/15/17 Furosemide [Lasix] 40 mg PO DAILY 11/15/17 Losartan Potassium [Cozaar] 100 mg PO DAILY 11/15/17 Metoprolol Succinate 25 mg PO BID 11/15/17 Sulfamethoxazole/Trimethoprim 1 each PO BID 11/15/17 [Bactrim 400-80 mg Tablet] Fexofenadine HCl [Machelle Allergy] 180 mg PO QHS 11/16/17 Surgical History: adenoidectomy, appendectomy, tonsillectomy, - - Back surgerymicrodissectomy Psychiatric History: No pertinent psych hx [employer]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 Skin: Reports: Dryness Neurological: Denies: Numbness, Tingling, Focal weakness Psychiatric: Denies: Anxiety, Depression, Homicidal Ideations, Suicidal Ideations Hematologic/ Lymphatic: Denies: Easy Bruising, Easy Bleeding VTE Information - Inpt Only VTE Present on Admission: No VTE Mechan Device Prophylaxis: None VTE Pharm Prophylaxis ordered?: Yes - Physical Exam General: Alert, Oriented x3, Cooperative HEENT: Atraumatic, PERRLA, EOMI, Normocephalic Neck: Supple, No JVD, Negative Carotid Bruits Lungs: Clear to auscultation, Normal air movement Cardiovascular: Regular rate, Normal S1, Normal S2 Abdomen: Bowel Sounds Present, Soft, Non Tender Extremities: Tenderness - Bilateral lower legs Skin: - - Redness of bilateral lower legs. Musculoskeletal: No Tenderness to Palpation of Joints or Extremities Neurological: Cranial nerves II-XII grossly intact Psych/Mental Status: Normal Affect, Appropriate Vital Signs Temp Pulse Resp BP Pulse Ox 98.9 F 80 22 H 149/110 H 99 11/15/17 17:55 11/15/17 17:55 11/15/17 17:55 11/15/17 17:55 11/15/17 17:55 Oxygen Delivery Method Room Air Weight: 173.726 kg Body Mass Index (BMI) 61.8 Laboratory Tests Past 24 Hrs 11/15/17 11/15/17 11/15/17 18:32 18:32 18:32 WBC 8.3 RBC 4.38 Hgb 12.3 Hct 39.6 MCV 90.4 MCH 28.1 MCHC 31.1 L RDW 15.3 H RDW Differential 50.4 H Plt Count 219 MPV 11.0 Immature Gran % (Auto) 0.200 Neut % (Auto) 87.9 H Lymph % (Auto) 7.3 L Catron % (Auto) 2.5 Eos % (Auto) 2.0 Baso % (Auto) 0.1 Absolute Neuts (auto) 7.3 Absolute Lymphs (auto) 0.61 L Total Counted Not Reportable Sodium 139 Potassium 4.0 Chloride 105 Carbon Dioxide 26.0 Anion Gap 8 BUN 24 H Creatinine 0.93 Estim Creat Clear Calc 65.49 Est GFR (MDRD) Af Amer 81 Est GFR (MDRD) Non-Af 67 BUN/Creatinine Ratio 25.7 H Glucose 147 H Lactic Acid 1.5 Calcium 9.0 Assessment/Plan All Active Problems Cellulitis (Acute) The patient is a 52 year old F with a significant history of hypertension, GERD, sleep apnea, hypothyroidism, diabetes, who presents with a one-week history of redness and pain at the bilateral lower extremities and has failed outpatient treatments of bilateral lower leg cellulitis. Bilateral lower leg cellulitis Concerned about recurrent cellulitis but there is no indication of a fungal infection of her toes. Received vancomycin and clindamycin at emergency department. Likely organism Staphylococcus or Streptococcus. We will continue vancomycin for possible MRSA; and clindamycin for Streptococcus toxins. Due to her systemic symptoms blood culture has been ordered. Diabetes Glucophage continued Accu-Chek q. before meals at bedtime Obstructive sleep apnea Patient brought home BiPAP. Okay to use. Hypothyroidism Synthroid continued Hypertension Cozaar continued Lasix continued DVT prophylaxis Subcutaneous Lovenox Code Visit Inpatient E&M: 51576 Init Hosp L3
[2017-11-15 21:50] VITALS: BMI 61.9
[2017-11-15 21:51] VITALS: BP 139/82; PULSE 89; RESP 20; TEMP 36.8; O2SAT 92
[2017-11-15 22:41] VITALS: BP 139/82; PULSE 89
[2017-11-15] MEDS: Metoprolol(XL)Succ 25 MG Tablet PO (22:41)
[2017-11-15] MEDS: Atorvastatin Calcium 40 MG Tablet PO (22:41)
[2017-11-15] MEDS: Celecoxib 100 MG Capsule PO (22:41)
[2017-11-15] MEDS: buPROPion (SR) 150 MG Tablet.SA PO (22:41)
[2017-11-15] MEDS: traMADol 50 MG Tablet PO (22:42)
[2017-11-16] VITALS (7 sets, daily range): BP systolic 93–129; BP diastolic 59–71; PULSE 72–78; RESP 18–20; TEMP 36.6–37.1; O2SAT 95–99
[2017-11-16] MEDS: Acetaminophen 325 MG Tablet 650 MG PO ×2 (03:32→15:32)
[2017-11-16] MEDS: Ondansetron 4 MG/2 ML Vial IV (04:52)
[2017-11-16] MEDS: traMADol 50 MG Tablet PO ×3 (04:52→21:29)
[2017-11-16] MEDS: 0.9% Normal Saline 1,000 ML 150 ML IV (04:53)
[2017-11-16] MEDS: Levothyroxine 175 MCG Tablet PO (05:18)
--- NOTE | 2017-11-16 05:35 | PCM.RX.CS ---
Consult Pharmacy has been consulted to manage selected antiobiotic: Vancomycin Type of Consult: New start Suspected Infection: Skin/Soft tissue Labs: Sodium 139 mmol/L (136-145) 11/15/17 18:32 Potassium 4.0 mmol/L (3.5-5.1) 11/15/17 18:32 Chloride 105 mmol/L (98-107) 11/15/17 18:32 Carbon Dioxide 26.0 mmol/L (21.0-32.0) 11/15/17 18:32 Anion Gap 8 (5-15) 11/15/17 18:32 BUN 24 mg/dL (7-18) H 11/15/17 18:32 Creatinine 0.93 mg/dL (0.55-1.02) 11/15/17 18:32 Est GFR (MDRD) Af Amer 81 mL/min (>60) 11/15/17 18:32 Est GFR (MDRD) Non-Af 67 mL/min (>60) 11/15/17 18:32 BUN/Creatinine Ratio 25.7 RATIO (10-20) H 11/15/17 18:32 Glucose 147 mg/dL (74-106) H 11/15/17 18:32 Estimated Creatinine Clearance: 65.49 Goal Trough: 10-15 mcg/mL Pharmacy Plan for Drug Dosing: Pharmacy Service will continue to monitor and adjust dosing as required. Medications Clindamycin Phosphate 900 mg/ (Dextrose) 106 mls @ 75 mls/hr IV Q8 MYNOR Last Admin: 11/16/17 03:54 Dose: 75 mls/hr Vancomycin HCl (Vancomycin) 1,000 mg in 200 mls @ 200 mls/hr IV Q12H MYNOR Discontinued Medications Vancomycin HCl 2,000 mg/ (Sodium Chloride) 540 mls @ 250 mls/hr IV X1 ONE Stop: 11/15/17 21:39 Last Admin: 11/15/17 21:23 Dose: 250 mls/hr Follow-Up Labs: Trough Vancomycin Labs to be done on [date and time ordered]: 11/17 @ 0937
[2017-11-16 06:26] LABS: Bedside Glucose 101 mg/dL (70-110)
[2017-11-16 07:06] LABS: Bedside Glucose 141 mg/dL (70-110)
[2017-11-16 07:11] LABS: Absolute Lymphocyte Count 0.77 X10^3/ul (0.83-4.51); Absolute Neutrophil Count 5.5 X10^3/uL (2.0-7.7); Basophil# 0.01 X10^3/uL; Basophil% 0.1 % (0-1); Eosinophil# 0.24 X10^3/uL; Eosinophils% 3.5 % (0-5); Hematocrit 34.2 % (37-47); Hemoglobin 10.8 g/dl (12.0-15.0); Lymphocyte # 0.77 X10^3/ul (4.0); Lymphocyte % 11.3 % (19-41); Mean Corp Hgb Conc 31.6 g/gl (32-36); Mean Corpuscular Hgb 28.8 pg (27.0-32.0); Mean Corpuscular Volume 91.2 fL (81-99); Mean Platelet Vol. 11.5 fl (6.2-12.0); Monocyte# 0.33 X10^3/uL; Monocyte% 4.8 % (0-10); Neutrophil # 5.45 X10^3/uL (2.7-7.7); Platelet Count 213 K/mm3 (150-450); RBC Distribution Width CV 15.5 % (11.6-14.6); RBC Distribution Width SD 50.7 fl (35.1-43.9); Red Blood Count 3.75 M/mm3 (4.2-5.4); White Blood Count 6.8 K/mm3 (4.4-11.0)
[2017-11-16 07:21] LABS: POSITIVE COUNT NO; POSITIVE DIFFERENTIAL NO; POSITIVE MORPHOLOGY NO
[2017-11-16 07:28] LABS: Anion Gap 9 (5-15); BUN 17 mg/dL (7-18); BUN/Creat Ratio 22.9 RATIO (10-20); Calcium,Total 8.1 mg/dL (8.5-10.1); Chloride 106 mmol/L (98-107); Creatinine, Serum 0.74 mg/dL (0.55-1.02); EST Glomerular Filtration Rate 87 mL/min (>60); Est Glom Filt Rate - Afr Amer 105 mL/min (>60); Estimated Creatinine Clearance 82.31 ml/min; Glucose 146 mg/dL (74-106); Potassium 3.7 mmol/L (3.5-5.1); Sodium Level 140 mmol/L (136-145)
[2017-11-16] MEDS: Pantoprazole Sodium 40 MG Tablet PO (09:33)
[2017-11-16] MEDS: buPROPion (SR) 150 MG Tablet.SA PO ×2 (09:33→21:13)
[2017-11-16] MEDS: Vancomycin IV 1,000 MG/200 ML BAG 200 MG IV ×2 (09:33→23:08)
[2017-11-16] MEDS: Enoxaparin 40 MG/0.4 ML Syringe SC (09:33)
[2017-11-16] MEDS: Celecoxib 100 MG Capsule PO ×2 (09:33→21:13)
[2017-11-16] MEDS: Furosemide 40 MG Tablet PO (09:33)
[2017-11-16] MEDS: Losartan Potassium 100 MG Tablet PO (09:33)
[2017-11-16] MEDS: Aspirin 81 MG TAB.CHEW PO (09:33)
[2017-11-16] MEDS: Metoprolol(XL)Succ 25 MG Tablet PO ×2 (09:37→21:12)
[2017-11-16 10:38] LABS: Rheumatoid Factor < 10.0 IU/mL (<15)
[2017-11-16 10:42] LABS: Erythrocyte Sedimentation Rate 59 mm/hr (0-30)
--- NOTE | 2017-11-16 10:45 | CASEMGMT ---
ANA CASAREZ Face to Face with patient for initial transition planning/care coordination assessment. RN HERMELINDO introduced self and role at [facility]. Patient lying in bed, alert and oriented. Patient willing to participate in assessment and is able to answer all questions appropriately. Care providers, pharmacy, and demographics verified. See link attached. Patient wishes to discharge home, denies need for home health at this time. Patient wishes to complete Living Will and HPOA. SW referral made to [facility] for advance directives. Patient states she has no further needs or concerns at this time. CM to follow for discharge planning needs that may arise. Disposition Plan: Patient to discharge home with family support and follow-up plans in place. Genet STEWARD, RN, CM
[2017-11-16 11:50] LABS: Bedside Glucose 176 mg/dL (70-110)
--- NOTE | 2017-11-16 12:14 | CASEMGMT ---
Social Work Met with pt in room and introduced self. Pt requesting to complete health care POA forms. SW explained HCPOA, pt is knowledgable and would like to complete form at this time. SW assisted with this document. Pt does not want to complete Living will at this time. Copy of HCPOA placed on pt chart and original given to pt with instructions to give copy to PCP and new HCPOA. No further needs at this time. REMIGIO Almonte
[2017-11-16] MEDS: 0.9% Normal Saline 1,000 ML 100 ML IV (13:39)
--- NOTE | 2017-11-16 14:27 | PCM.PROGNOTE ---
<Madonna Khan - Last Filed: 11/16/17 14:48> Subjective: Patient seen and examined. Complains of generalized joint aching, swelling of bilateral hands. Bilateral leg pain slightly improved. Patient states redness is about the same as admission. Denies fever, chills. No other complaints. - Physical Exam General: Alert, Oriented x3, Cooperative, No apparent distress HEENT: Atraumatic, PERRLA, EOMI, Normocephalic Neck: Supple, No JVD, Negative Carotid Bruits Lungs: Clear to auscultation, Diminished Cardiovascular: Regular rate, Regular Rhythm, Normal S1, Normal S2, No murmurs Abdomen: Bowel Sounds Present, Soft, Non Tender, Non-Distended, Obese Extremities: No clubbing, No cyanosis, Edema - Chronic lower extremity lymphedema Skin: - - Chronic skin changes bilateral lower extremities. Healed ulcerations. Musculoskeletal: Tenderness - Bilateral lower extremities. Neurological: Cranial nerves II-XII grossly intact, Neuro grossly intact Psych/Mental Status: Normal Affect, Appropriate Vital Signs Temp Pulse Resp BP Pulse Ox 98.7 F 72 18 93/59 L 99 11/16/17 09:30 11/16/17 09:37 11/16/17 09:30 11/16/17 09:30 11/16/17 09:30 Oxygen Delivery Method Room Air Weight: 383 lb 9.669 oz Body Mass Index (BMI) 61.9 Intake and Output for Last 24 Hours 11/14/17 11/15/17 11/16/17 23:59 23:59 23:59 Intake Total 3388 / 3388 Output Total 750 / 750 Balance 2638 / 2638 Laboratory Tests Past 24 Hrs 11/16/17 11/16/17 11/16/17 06:25 06:25 06:25 WBC 6.8 RBC 3.75 L Hgb 10.8 L Hct 34.2 L MCV 91.2 MCH 28.8 MCHC 31.6 L RDW 15.5 H RDW Differential 50.7 H Plt Count 213 MPV 11.5 Immature Gran % (Auto) 0.300 Neut % (Auto) 80.0 H Lymph % (Auto) 11.3 L [place] % (Auto) 4.8 Eos % (Auto) 3.5 Baso % (Auto) 0.1 Absolute Neuts (auto) 5.5 Absolute Lymphs (auto) 0.77 L Total Counted Not Reportable ESR 59 H Sodium 140 Potassium 3.7 Chloride 106 Carbon Dioxide 25.0 Anion Gap 9 BUN 17 Creatinine 0.74 Estim Creat Clear Calc 82.31 Est GFR (MDRD) Af Amer 105 Est GFR (MDRD) Non-Af 87 BUN/Creatinine Ratio 22.9 H Glucose 146 H Calcium 8.1 L C-React Prot Ext Range Rheumatoid Factor NORMAN Screen BRIANNA-1 Antibody SS-A/Ro IgG Antibody SS-B/La IgG Antibody Sm (Yang) Antibody PIG FARM MANAGER Antibody Scl-70 Scleroderma Ab Double Strand DNA Ab Centromere B Antibody 11/16/17 11/16/17 06:25 11:25 WBC RBC Hgb Hct MCV MCH MCHC RDW RDW Differential Plt Count MPV Immature Gran % (Auto) Neut % (Auto) Lymph % (Auto) Highlands % (Auto) Eos % (Auto) Baso % (Auto) Absolute Neuts (auto) Absolute Lymphs (auto) Total Counted ESR Sodium Potassium Chloride Carbon Dioxide Anion Gap BUN Creatinine Estim Creat Clear Calc Est GFR (MDRD) Af Amer Est GFR (MDRD) Non-Af BUN/Creatinine Ratio Glucose Calcium C-React Prot Ext Range 108.00 H Rheumatoid Factor < 10.0 NORMAN Screen Pending BRIANNA-1 Antibody Pending SS-A/Ro IgG Antibody Pending SS-B/La IgG Antibody Pending Sm (Yang) Antibody Pending PIG FARM MANAGER Antibody Pending Scl-70 Scleroderma Ab Pending Double Strand DNA Ab Pending Centromere B Antibody Pending POC Glucose 11/16/17 11/16/17 11/15/17 11:36 06:48 22:46 POC Glucose 176 H 141 H 101 Medical Necessity - Tobacco Use Smoking Status: Former smoker Tobacco Use: Cigarettes Assessment/Plan All Active Problems Cellulitis (Acute) 1. Bilateral lower extremity swelling, erythema on chronic lymphedema-not convinced of cellulitis. Patient complains of generalized joint aching. She had a similar episode in April of this year in which antibiotics did not improve her symptoms as well. Patient was discharged on Lasix at that time. Echocardiogram was completed which showed 65% ejection fraction, technically difficult study. Unable to estimate RVSP. Lower extremity venous studies 11/09/2017 without evidence of DVT. Feel patient's lower extremity swelling in discomfort is more likely related to chronic venous insufficiency with associated edema. Snug mazin wraps bilateral lower extremities. Discontinue IV clindamycin and IV vancomycin. Continue Duricef 1000 mg twice daily empirically. Begin IV Lasix 40 mg twice daily. Strict I&O, daily weight. Patient has been afebrile, no leukocytosis. ESR elevated, 59. CRP 108. RA, NORMAN pending. Blood cultures pending. 2. Type 2 diabetes mellitus-hemoglobin A1c 04/24/2017 7.3%. Accu-Cheks before meals at bedtime with sliding scale insulin. 3. Hypothyroidism-continue Synthroid. 4. Hypertension-stable, continue home regimen of losartan, metoprolol. 5. Hyperlipidemia-continue statin. 6. GERD-continue PPI. 7. Depression/Anxiety-continue home Wellbutrin regimen. 8. Morbid obesity-encourage diet and lifestyle modifications. 9. Obstructive sleep apnea-continue BiPAP. DVT prophylaxis- Lovenox sc. This patient was seen by LENIN Wiggins under the supervision of Dr. Ferris. <Delio Ferris F - Last Filed: 11/16/17 16:34> - Physical Exam Vital Signs Temp Pulse Resp BP Pulse Ox 98.4 F 73 18 113/66 99 11/16/17 15:25 11/16/17 15:25 11/16/17 15:25 11/16/17 15:25 11/16/17 15:25 Oxygen Delivery Method Room Air Weight: 383 lb 9.669 oz Body Mass Index (BMI) 61.9 Intake and Output for Last 24 Hours 11/14/17 11/15/17 11/16/17 23:59 23:59 23:59 Intake Total 3388 / 3388 Output Total 750 / 750 Balance 2638 / 2638 Laboratory Tests Past 24 Hrs 11/16/17 11/16/17 11/16/17 06:25 06:25 06:25 WBC 6.8 RBC 3.75 L Hgb 10.8 L Hct 34.2 L MCV 91.2 MCH 28.8 MCHC 31.6 L RDW 15.5 H RDW Differential 50.7 H Plt Count 213 MPV 11.5 Immature Gran % (Auto) 0.300 Neut % (Auto) 80.0 H Lymph % (Auto) 11.3 L [place] % (Auto) 4.8 Eos % (Auto) 3.5 Baso % (Auto) 0.1 Absolute Neuts (auto) 5.5 Absolute Lymphs (auto) 0.77 L Total Counted Not Reportable ESR 59 H Sodium 140 Potassium 3.7 Chloride 106 Carbon Dioxide 25.0 Anion Gap 9 BUN 17 Creatinine 0.74 Estim Creat Clear Calc 82.31 Est GFR (MDRD) Af Amer 105 Est GFR (MDRD) Non-Af 87 BUN/Creatinine Ratio 22.9 H Glucose 146 H Calcium 8.1 L C-React Prot Ext Range Rheumatoid Factor NORMAN Screen BRIANNA-1 Antibody SS-A/Ro IgG Antibody SS-B/La IgG Antibody Sm (Yang) Antibody PIG FARM MANAGER Antibody Scl-70 Scleroderma Ab Double Strand DNA Ab Centromere B Antibody 11/16/17 11/16/17 06:25 11:25 WBC RBC Hgb Hct MCV MCH MCHC RDW RDW Differential Plt Count MPV Immature Gran % (Auto) Neut % (Auto) Lymph % (Auto) [place] % (Auto) Eos % (Auto) Baso % (Auto) Absolute Neuts (auto) Absolute Lymphs (auto) Total Counted ESR Sodium Potassium Chloride Carbon Dioxide Anion Gap BUN Creatinine Estim Creat Clear Calc Est GFR (MDRD) Af Amer Est GFR (MDRD) Non-Af BUN/Creatinine Ratio Glucose Calcium C-React Prot Ext Range 108.00 H Rheumatoid Factor < 10.0 NORMAN Screen Pending BRIANNA-1 Antibody Pending SS-A/Ro IgG Antibody Pending SS-B/La IgG Antibody Pending Sm (Yang) Antibody Pending PIG FARM MANAGER Antibody Pending Scl-70 Scleroderma Ab Pending Double Strand DNA Ab Pending Centromere B Antibody Pending POC Glucose 11/16/17 11/16/17 11/15/17 11:36 06:48 22:46 POC Glucose 176 H 141 H 101 Assessment/Plan Addendum: Dr. Ferris Agree with above. I saw and examined the patient independently. Possible cellulitis on the RLE. Continue with vanc and clinda for 1 more day and if no improvement, will de-escalate and hold fluids and diurese to see if possible chronic skin changes. She is afebrile without leukocytosis. Code Visit Inpatient E&M: 53407 Subs Hosp L3
--- NOTE | 2017-11-16 15:43 | CHAPLAIN ---
Type of Pastoral Visit _x__ Initial Visit ___ Follow-up Visit ___ On-call Visit ___ General Patient Visit ___ Spiritual Assessment ___ Family Conference ___ Bereavement ___ Rapid Response ___ Code Blue ___ Other (describe below) Pastoral Care Referral From _x__ Patient ___ Family ___ Nurse ___ Physician ___ [employer] ___ Order Control Clerk Blood Bank ___ Other (describe below) Sacrament/Intervention _x__ Active listening ___ Anointing ___ Mormon ___ Bereavement ___ Communion _x__ Marilee exploration ___ _x__ Life review _x__ Prayer ___ Reconciliation ___ Sacrament of Sick ___ Supportive presence ___ Wedding ___ Other (describe below) Pastoral Comments patient gives account of life story; pt is not connected with a congregation but would like to find one; pt welcomes prayer support
--- NOTE | 2017-11-16 15:56 | PCM.RX.CS ---
Consult Pharmacy has been consulted to manage selected antiobiotic: Vancomycin Type of Consult: Follow-up Suspected Infection: Skin/Soft tissue Prior Doses of Antibiotics Received/Current Regimen: 2 Labs: Sodium 140 mmol/L (136-145) 11/16/17 06:25 Potassium 3.7 mmol/L (3.5-5.1) 11/16/17 06:25 Chloride 106 mmol/L (98-107) 11/16/17 06:25 Carbon Dioxide 25.0 mmol/L (21.0-32.0) 11/16/17 06:25 Anion Gap 9 (5-15) 11/16/17 06:25 BUN 17 mg/dL (7-18) 11/16/17 06:25 Creatinine 0.74 mg/dL (0.55-1.02) 11/16/17 06:25 Est GFR (MDRD) Af Amer 105 mL/min (>60) 11/16/17 06:25 Est GFR (MDRD) Non-Af 87 mL/min (>60) 11/16/17 06:25 BUN/Creatinine Ratio 22.9 RATIO (10-20) H 11/16/17 06:25 Glucose 146 mg/dL (74-106) H 11/16/17 06:25 Weight used for dosin kg Estimated Creatinine Clearance: 82 Goal Trough: 10-15 mcg/mL - resuming previous dose that had been discontinued, trough level prior to 4th dose Pharmacy Plan for Drug Dosing: Pharmacy Service will continue to monitor and adjust dosing as required.
[2017-11-16 16:55] LABS: Bedside Glucose 103 mg/dL (70-110)
[2017-11-16] MEDS: Atorvastatin Calcium 40 MG Tablet PO (21:13)
[2017-11-16] MEDS: Loratadine 10 MG Tablet PO (21:13)
[2017-11-16 23:31] LABS: Bedside Glucose 133 mg/dL (70-110)
[2017-11-17] VITALS (8 sets, daily range): BP systolic 98–166; BP diastolic 56–85; PULSE 68–73; RESP 17–20; TEMP 36.7–37.2; O2SAT 96–98
[2017-11-17] MEDS: 0.9% Normal Saline 1,000 ML 100 ML IV (06:03)
[2017-11-17] MEDS: Levothyroxine 175 MCG Tablet PO (06:04)
[2017-11-17 07:14] LABS: Hematocrit 33.7 % (37-47); Hemoglobin 10.5 g/dl (12.0-15.0); Mean Corp Hgb Conc 31.2 g/gl (32-36); Mean Corpuscular Hgb 28.7 pg (27.0-32.0); Mean Corpuscular Volume 92.1 fL (81-99); Mean Platelet Vol. 11.6 fl (6.2-12.0); Platelet Count 201 K/mm3 (150-450); RBC Distribution Width CV 15.7 % (11.6-14.6); RBC Distribution Width SD 51.3 fl (35.1-43.9); Red Blood Count 3.66 M/mm3 (4.2-5.4); Scan Indicated on CBC? Y/N NO; White Blood Count 6.2 K/mm3 (4.4-11.0)
[2017-11-17 07:51] LABS: Bedside Glucose 144 mg/dL (70-110)
[2017-11-17] MEDS: buPROPion (SR) 150 MG Tablet.SA PO ×2 (08:31→21:00)
[2017-11-17] MEDS: Enoxaparin 40 MG/0.4 ML Syringe SC (08:31)
[2017-11-17] MEDS: Pantoprazole Sodium 40 MG Tablet PO (08:32)
[2017-11-17] MEDS: Aspirin 81 MG TAB.CHEW PO (08:32)
[2017-11-17] MEDS: Losartan Potassium 100 MG Tablet PO (08:32)
[2017-11-17] MEDS: Celecoxib 100 MG Capsule PO ×2 (08:32→21:00)
[2017-11-17] MEDS: Metoprolol(XL)Succ 25 MG Tablet PO ×2 (08:44→20:59)
[2017-11-17 09:46] LABS: Vancomycin, Trough Level 7.9 ug/mL (5.0-15.0)
[2017-11-17] MEDS: Acetaminophen 325 MG Tablet 650 MG PO (10:05)
[2017-11-17] MEDS: Furosemide 40 MG/4 ML Vial IV ×2 (10:54→17:32)
[2017-11-17] MEDS: Insulin Lispro 100 UNIT/ML INSULN.PEN SC ×2 (11:00→20:56)
[2017-11-17 11:01] LABS: Bedside Glucose 180 mg/dL (70-110)
[2017-11-17] MEDS: 0.9% NaCl Peripheral Flush Adult/Peds IV ×2 (11:08→17:44)
--- NOTE | 2017-11-17 12:23 | PCM.PROGNOTE ---
<Madonna Khan - Last Filed: 11/17/17 12:34> Subjective: Patient seen and examined. States joint pain is improved today. Continues to have swelling bilateral hands. Denies significant improvement of right lower extremity redness, swelling. Denies fever, chills. States right lower extremity pain is mildly improved. No other new complaints. - Physical Exam General: Alert, Oriented x3, Cooperative, No apparent distress HEENT: Atraumatic, PERRLA, EOMI, Normocephalic Neck: Supple, No JVD, Negative Carotid Bruits Lungs: Clear to auscultation, Diminished Cardiovascular: Regular rate, Regular Rhythm, Normal S1, Normal S2, No murmurs Abdomen: Bowel Sounds Present, Soft, Non Tender, Non-Distended, Obese Extremities: No clubbing, No cyanosis, Edema - Chronic lower extremity lymphedema Skin: - - Chronic skin changes bilateral lower extremities. Right lower extremity with redness mid handley to ankle, healed ulcerations. Musculoskeletal: Tenderness - Right lower extremity Neurological: Cranial nerves II-XII grossly intact, Neuro grossly intact Psych/Mental Status: Normal Affect, Appropriate Vital Signs Temp Pulse Resp BP Pulse Ox 98.2 F 70 17 151/85 H 97 11/17/17 08:00 11/17/17 08:44 11/17/17 08:00 11/17/17 08:44 11/17/17 08:00 Oxygen Delivery Method Room Air Weight: 383 lb 9.669 oz Body Mass Index (BMI) 61.9 Intake and Output for Last 24 Hours 11/15/17 11/16/17 11/17/17 23:59 23:59 23:59 Intake Total 4651 / 4651 1787 / 1787 Output Total 2650 / 2650 1400 / 1400 Balance 2000 387 / 387 Laboratory Tests Past 24 Hrs 11/17/17 11/17/17 06:41 09:01 WBC 6.2 RBC 3.66 L Hgb 10.5 L Hct 33.7 L MCV 92.1 MCH 28.7 MCHC 31.2 L RDW 15.7 H RDW Differential 51.3 H Plt Count 201 MPV 11.6 Vancomycin Trough 7.9 POC Glucose 11/17/17 11/17/17 11/16/17 10:52 06:08 21:29 POC Glucose 180 H 144 H 133 H 11/16/17 16:48 POC Glucose 103 Medical Necessity - Tobacco Use Smoking Status: Former smoker Tobacco Use: Cigarettes Assessment/Plan All Active Problems Cellulitis (Acute) 1. Bilateral lower extremity swelling, erythema on chronic lymphedema-possible cellulitis. Patient complains of generalized joint aching. She had a similar episode in April of this year in which she was treated with antibiotics. Patient was discharged on Lasix at that time. Echocardiogram was completed which showed 65% ejection fraction, technically difficult study. Unable to estimate RVSP. Lower extremity venous studies 11/09/2017 without evidence of DVT. Lower extremity swelling and redness may be multi-factorial due to chronic venous insufficiency, chronic lymphedema as well as suspected acute cellulitis. Snug mazin wraps bilateral lower extremities. IV clindamycin and IV vancomycin discontinued. Start oral clindamycin 450 mg 3 times daily. Begin IV Lasix 40 mg twice daily. Strict I&O, daily weight. Patient remains afebrile, no leukocytosis. ESR elevated, 59. CRP 108. RA, NORMAN pending. Blood cultures pending. Possible discharge home tomorrow pending continued improvement. 2. Type 2 diabetes mellitus-hemoglobin A1c 04/24/2017 7.3%. Accu-Cheks before meals at bedtime with sliding scale insulin. 3. Hypothyroidism-continue Synthroid. 4. Hypertension-stable, continue home regimen of losartan, metoprolol. 5. Hyperlipidemia-continue statin. 6. GERD-continue PPI. 7. Depression/Anxiety-continue home Wellbutrin regimen. 8. Morbid obesity-encourage diet and lifestyle modifications. 9. Obstructive sleep apnea-continue BiPAP. DVT prophylaxis- Lovenox sc. This patient was seen by LENIN Wiggins under the supervision of Dr. Ferris. <Delio Ferris F - Last Filed: 11/17/17 15:38> - Physical Exam Vital Signs Temp Pulse Resp BP Pulse Ox 98.4 F 73 17 123/69 H 97 11/17/17 14:04 11/17/17 14:05 11/17/17 14:04 11/17/17 14:04 11/17/17 08:00 Oxygen Delivery Method Room Air Weight: 383 lb 9.669 oz Body Mass Index (BMI) 61.9 Intake and Output for Last 24 Hours 11/15/17 11/16/17 11/17/17 23:59 23:59 23:59 Intake Total 4651 / 4651 1787 / 1787 Output Total 2650 / 2650 2900 / 2900 Balance 2000 -1113 / -1113 Laboratory Tests Past 24 Hrs 11/17/17 11/17/17 06:41 09:01 WBC 6.2 RBC 3.66 L Hgb 10.5 L Hct 33.7 L MCV 92.1 MCH 28.7 MCHC 31.2 L RDW 15.7 H RDW Differential 51.3 H Plt Count 201 MPV 11.6 Vancomycin Trough 7.9 POC Glucose 11/17/17 11/17/17 11/16/17 10:52 06:08 21:29 POC Glucose 180 H 144 H 133 H 11/16/17 16:48 POC Glucose 103 Assessment/Plan Addendum: Dr. Ferris Agree with above. I saw and examined the patient independently. Possible cellulitis on the RLE. Continue with clinda and start diuresis. Plan for DC tomorrow Code Visit Inpatient E&M: 95441 Subs Hosp L2
[2017-11-17] MEDS: Clindamycin HCl 150 MG Capsule 450 MG PO ×2 (13:56→21:00)
[2017-11-17 16:45] LABS: Bedside Glucose 124 mg/dL (70-110)
[2017-11-17] MEDS: Loratadine 10 MG Tablet PO (21:00)
[2017-11-17] MEDS: Atorvastatin Calcium 40 MG Tablet PO (21:00)
[2017-11-17 21:01] LABS: Bedside Glucose 156 mg/dL (70-110)
[2017-11-17] MEDS: traMADol 50 MG Tablet PO (23:20)
[2017-11-18 04:00] VITALS: BP 107/70; PULSE 66; RESP 18; TEMP 36.7; O2SAT 96
[2017-11-18] MEDS: Levothyroxine 175 MCG Tablet PO (05:34)
[2017-11-18] MEDS: Clindamycin HCl 150 MG Capsule 450 MG PO (05:34)
[2017-11-18] MEDS: Insulin Lispro 100 UNIT/ML INSULN.PEN SC (07:04)
[2017-11-18 07:06] LABS: Bedside Glucose 161 mg/dL (70-110)
[2017-11-18 07:56] VITALS: O2SAT 96
[2017-11-18 08:51] VITALS: BP 117/76; PULSE 64; PULSE 77; RESP 16; RESP 17; TEMP 36.7; O2SAT 98
[2017-11-18] MEDS: Enoxaparin 40 MG/0.4 ML Syringe SC (09:13)
[2017-11-18 09:14] VITALS: BP 117/76; PULSE 77
[2017-11-18] MEDS: Aspirin 81 MG TAB.CHEW PO (09:14)
[2017-11-18] MEDS: Furosemide 40 MG/4 ML Vial IV (09:14)
[2017-11-18] MEDS: Metoprolol(XL)Succ 25 MG Tablet PO (09:14)
[2017-11-18] MEDS: Losartan Potassium 100 MG Tablet PO (09:15)
[2017-11-18] MEDS: Pantoprazole Sodium 40 MG Tablet PO (09:15)
[2017-11-18] MEDS: buPROPion (SR) 150 MG Tablet.SA PO (09:15)
[2017-11-18] MEDS: 0.9% NaCl Peripheral Flush Adult/Peds IV (09:15)
[2017-11-18] MEDS: Celecoxib 100 MG Capsule PO (09:15)
--- NOTE | 2017-11-18 09:27 | PCM.DC ---
You will use the following diet at home:: Calorie/Carbohydrate Controlled (specify 1200, 1400, etc) Discharge Activity: Return to Normal Activity, - - Keep legs wrapped and elevated as much as possible. Call your doctor if you observe: Fever of 101 or Higher, Shortness of breath, Dizziness, Fainting spells, Chest pain, Calf discomfort Additional Instructions: Take lasix 40 mg twice daily for 5 days, then resume lasix 40mg daily. Allergies/Adverse Reactions: Allergies ciprofloxacin [From Cipro] Allergy (Verified 11/15/17 17:58) Itching ciprofloxacin HCl [From Cipro] Allergy (Verified 11/15/17 17:58) Unknown erythromycin base [Erythromycin Base] Allergy (Verified 11/15/17 17:58) Nausea metronidazole [From Flagyl] Allergy (Verified 11/15/17 17:58) Anaphylaxis oxycodone Allergy (Verified 11/15/17 17:58) Itching Penicillins Allergy (Verified 11/15/17 17:58) swelling (when she was an ) Tetracyclines Allergy (Verified 11/15/17 17:58) Nausea meloxicam [From Mobic] Adverse Reaction (Verified 11/15/17 17:58) elevates BP states elevated bp Medications to take at Discharge Aspirin [Aspirin, Baby] 81 mg PO DAILY@0800 07/01/13 Celecoxib [Celebrex] 100 mg PO BID 07/01/13 Levothyroxine [Synthroid] 175 mcg PO DAILY 07/01/13 Metformin HCl [Glucophage] 500 mg PO BREAKFAST 12/12/13 Lansoprazole [Prevacid] 30 mg PO DAILY 12/30/15 Bupropion HCl [Wellbutrin Sr] 150 mg PO BID 04/24/17 Atorvastatin Calcium [Lipitor] 40 mg PO QHS 11/15/17 Furosemide [Lasix] 40 mg PO DAILY 11/15/17 Losartan Potassium [Cozaar] 100 mg PO DAILY 11/15/17 Metoprolol Succinate 25 mg PO BID 11/15/17 Fexofenadine HCl [Machelle Allergy] 180 mg PO QHS 11/16/17 Clindamycin [Cleocin] 450 mg PO TID #45 cap 11/18/17 The following prescriptions were given: Clindamycin [Cleocin] 450 mg PO TID #45 cap Primary Care Physician: Lazarus Arcos MD [Primary Care Provider] - Please follow up with your Primary Care Physician in: 1 Week Test Results: Test results from this visit will be discussed in further detail at your follow-up appointment, if applicable. Proposed Discharge Date: 11/18/17
--- NOTE | 2017-11-18 09:31 | PCM.DC.SUM ---
<Madonna Khan - Last Filed: 11/18/17 09:37> Discharge Date and Diagnosis Date of Admission: 11/15/17 Date of Discharge: 11/18/17 - Primary Discharge Diagnosis 1. Bilateral lower extremity cellulitis 2. Lower extremity edema secondary to chronic venous insufficiency with chronic lymphedema - Secondary Discharge Diagnosis Chronic Problems Sleep apnea (Chronic) GERD (gastroesophageal reflux disease) (Chronic) HTN (hypertension) (Chronic) Diabetes (Chronic) Obesity, morbid, BMI 50 or higher (Chronic) Hospital Course and Treatment Operations: None Procedures: None Summary of Care Provided: The patient is a 52 year old F admitted 11/15/2017 due to bilateral leg pain and redness for 1 week. Patient was treated with Keflex and Bactrim as outpatient without improvement in symptoms. 1. Bilateral lower extremity swelling, erythema on chronic lymphedema-possible cellulitis. She had a similar episode in April of this year in which she was treated with antibiotics. Patient was discharged on Lasix at that time. Echocardiogram was completed which showed 65% ejection fraction, technically difficult study. Unable to estimate RVSP. Lower extremity venous studies 11/09/2017 without evidence of DVT. Lower extremity swelling and redness may be multi-factorial due to chronic venous insufficiency, chronic lymphedema as well as suspected acute cellulitis. Snug mazin wraps bilateral lower extremities. Patient had significant improvement with IV Lasix. Increase home Lasix regimen to 40 mg twice daily for 5 days. Patient will complete course of clindamycin 450 mg 3 times daily for 5 more days at discharge as well. Patient has remained afebrile during admission, no leukocytosis. ESR elevated, 59. CRP 108. RA, NORMAN pending. Blood cultures pending. Follow-up with primary care physician in 1 week. 2. Type 2 diabetes mellitus-hemoglobin A1c 04/24/2017 7.3%. Continue home oral regimen at discharge. Continue outpatient follow-up. 3. Hypothyroidism-continue Synthroid. 4. Hypertension-stable, continue home regimen of losartan, metoprolol. 5. Hyperlipidemia-continue statin. 6. GERD-continue PPI. 7. Depression/Anxiety-continue home Wellbutrin regimen. 8. Morbid obesity-encourage diet and lifestyle modifications. 9. Obstructive sleep apnea-continue BiPAP. General: Alert, Oriented x3, Cooperative, No apparent distress HEENT: Atraumatic, PERRLA, EOMI, Normocephalic Neck: Supple, No JVD, Negative Carotid Bruits Lungs: Clear to auscultation, Diminished Cardiovascular: Regular rate, Regular Rhythm, Normal S1, Normal S2, No murmurs Abdomen: Bowel Sounds Present, Soft, Non Tender, Non-Distended, Obese Extremities: No clubbing, No cyanosis, Edema - Chronic lower extremity lymphedema Skin: - - Chronic skin changes bilateral lower extremities. Right lower extremity with redness mid handley to ankle, healed ulcerations. Musculoskeletal: Tenderness - Right lower extremity Neurological: Cranial nerves II-XII grossly intact, Neuro grossly intact Psych/Mental Status: Normal Affect, Appropriate Patient seen exam prior to discharge. Physical assessment as noted above. Patient stable for discharge home with follow-up her conditions as noted above. This patient was seen by LENIN Wiggins under the supervision of Dr. Ferris. Discharge Diet: 1800 Calorie Control Diet, Carb Control Diet Discharge Activity: Return to Normal Activity, - - Keep legs wrapped and elevated as much as possible. Call your doctor if you observe: Fever of 101 or Higher, Shortness of breath, Dizziness, Fainting spells, Chest pain, Calf discomfort Home Medications: Medications to take at Discharge Aspirin [Aspirin, Baby] 81 mg PO DAILY@0800 07/01/13 Celecoxib [Celebrex] 100 mg PO BID 07/01/13 Levothyroxine [Synthroid] 175 mcg PO DAILY 07/01/13 Metformin HCl [Glucophage] 500 mg PO BREAKFAST 12/12/13 Lansoprazole [Prevacid] 30 mg PO DAILY 12/30/15 Bupropion HCl [Wellbutrin Sr] 150 mg PO BID 04/24/17 Atorvastatin Calcium [Lipitor] 40 mg PO QHS 11/15/17 Furosemide [Lasix] 40 mg PO DAILY 11/15/17 Losartan Potassium [Cozaar] 100 mg PO DAILY 11/15/17 Metoprolol Succinate 25 mg PO BID 11/15/17 Fexofenadine HCl [Machelle Allergy] 180 mg PO QHS 11/16/17 Clindamycin [Cleocin] 450 mg PO TID #45 cap 11/18/17 Following Prescrptions Were Given to Patient: Clindamycin [Cleocin] 450 mg PO TID #45 cap Primary Care Physician: Lazarus Arcos MD [Primary Care Provider] - Please follow up with your Primary Care Physician in: 1 Week Disposition: Home Minutes spent on discharge:: 35 Patient Condition:: Stable Medical Necessity - Tobacco Use Smoking Status: Former smoker Tobacco Use: Cigarettes Meaningful Use Info Meaningful Use Diagnoses (Choose all that apply): None applicable <Delio Ferris F - Last Filed: 11/18/17 11:27> Discharge Date and Diagnosis - Secondary Discharge Diagnosis Chronic Problems Sleep apnea (Chronic) GERD (gastroesophageal reflux disease) (Chronic) HTN (hypertension) (Chronic) Diabetes (Chronic) Obesity, morbid, BMI 50 or higher (Chronic) Hospital Course and Treatment Summary of Care Provided: The patient is a 52 year old F [] Code Visit Dr. Ferris I examined the patient and reviewed the chart. I agree with the above. This was likely chronic venous stasis changes, however would recommend completing the course of abx. Continue with BID diuresis and f/u with PCP in 1 week. Inpatient E&M: 59871 Disch Hosp
--- NOTE | 2017-11-19 15:53 | CASEMGMT ---
RN CM Discharge Follow-up Phone Call: YASMIN: 9 Strata: 3 Call Date: 11/19/17 Discharge Date: 11/18/17 Time of Call: 1550 Duration: 1 min Admitting Diagnosis: Cellulitis RN CM attempted to complete follow-up phone call after recent hospitalization. No answer, voice message left with return contact information.
[2017-11-20 10:23] LABS: ANTINUCLEAR ANTIBODIES DIRECT Negative (Negative)
== END 2017-11-18 11:13 | disposition home or self-care (01) | DRG 603 ==
LOC: ED 18:45 → MS3 20:38
PROVIDERS: Nurse Practitioner Family; Admitting Provider Hospitalist; Emergency Provider Emergency Medicine; Family Provider Internal Medicine; PCP Internal Medicine; Visit Provider Family Medicine
DX: L03.115 Cellulitis of right lower limb (principal); Z68.44 Body mass index [BMI] 60.0-69.9, adult; E11.9 Type 2 diabetes mellitus without complications; L03.116 Cellulitis of left lower limb; E03.9 Hypothyroidism, unspecified; I10 Essential (primary) hypertension; E78.5 Hyperlipidemia, unspecified; K21.9 Gastro-esophageal reflux disease without esophagitis; E66.01 Morbid (severe) obesity due to excess calories; G47.33 Obstructive sleep apnea (adult) (pediatric); Z79.899 Other long term (current) drug therapy; F32.9 Major depressive disorder, single episode, unspecified; F41.9 Anxiety disorder, unspecified; Z87.891 Personal history of nicotine dependence; Z79.84 Long term (current) use of oral hypoglycemic drugs; I87.2 Venous insufficiency (chronic) (peripheral); I89.0 Lymphedema, not elsewhere classified
CPT/HCPCS: 36415; 80048; 80202; 82962; 83605; 85025; 85027; 85652; 86038; 86140; 86225; 86235; 86431; 87040; 97162; 97165; 97530; 99282; J7030; J7040; A4216; J1940; J2405

== ENCOUNTER 2017-12-02 13:08 | Inpatient (IN) | payer OTHER, SELFPAY ==
[2017-12-02 13:09] VITALS: BP 157/86; PULSE 86; RESP 18; TEMP 37.2; O2SAT 96; BMI 61.8
--- NOTE | 2017-12-02 13:39 | ED.VISSUMM ---
- ER Visit Summary Date of Service: 12/02/17 Chief Complaint: [] Bilateral lower extremity pain and redness cellulitis History of Present Illness: The patient is a 52 F [] history of diabetes obesity, lower extremity lymphedema history of cellulitis reports that she developed redness pain and burning in her lower extremities yesterday symptoms intensified today she came in for evaluation, she is a history of same multiple times, most recently 2 weeks ago which was treated as an outpatient failed outpatient therapy and required inpatient management, she was discharged her last bout of cellulitis 2 weeks ago he was complains of diffuse body aches fevers subjective no chest pain abdominal pain normal bowel bladder habits, no exposures there is no clear indication as to why she constantly experiences and suffers from bilateral lower extremity cellulitis of the lymphedema and chronic venous stasis, she is not known to have MRSA, and she has diabetes but no other immunocompromising issues Physical Examination: [] Very large woman her BMI is 62 she is resting the bed no distress her lungs and heart tones are distant the abdomen is obese but soft nontender she has redness and warmth of both lower extremities , no petechia purpura skin breakdown she states she has not suffered any trauma to her legs and typically when she gets cellulitis there is no obvious skin defect her feet appear symmetrically well perfused she is able to move all 4 extremities complains of myalgias but no obvious joint pain or joint stiffness or effusions, she has had prior immunologic studies and rheumatologic studies related to the joint pains that were negative neurologically awake and alert moving all 4 Test Results: [] Emergency Department Course and Treatment: [] Given all of the above screening labs IV fluids IV antibiotics, The patient's lab studies are generally unremarkable lactate pending she has not with IV fluids IV antibiotics given her history of refractory cellulitis failed outpatient management the past fact she was just admitted to the hospital discharged 2 weeks ago for same I have asked the hospital see her further management and admission we reviewed antibiotic management with them they will determine if antibiotics need to be adjusted anyway Treatment Plan: [] Disposition: [] Admit stable Impression: [] Bilateral lower extremity cellulitis diabetes This note was generated with [employer] ([employer] dictation software. It may contain incorrect words, spelling, and punctuation that were not noted in review of the chart prior to signing ED Disposition - Plan for ED Patient: Chief Complaint: Other, Pain/Inj Referrals: Lazarus Arcos MD [Primary Care Provider] -
--- NOTE | 2017-12-02 13:42 | ED.DCSUM_ITS ---
- ER Visit Summary Date of Service: 12/02/17 Chief Complaint: [] Bilateral lower extremity pain and redness cellulitis History of Present Illness: The patient is a 52 F [] history of diabetes obesity , lower extremity lymphedema history of cellulitis reports that she developed redness pain and burning in her lower extremities yesterday symptoms intensified today she came in for evaluation, she is a history of same multiple times, most recently 2 weeks ago which was treated as an outpatient failed outpatient therapy and required inpatient management, she was discharged her last bout of cellulitis 2 weeks ago he was complains of diffuse body aches fevers subjective no chest pain abdominal pain normal bowel bladder habits, no exposures there is no clear indication as to why she constantly experiences and suffers from bilateral lower extremity cellulitis of the lymphedema and chronic venous stasis, she is not known to have MRSA, and she has diabetes but no other immunocompromising issues Physical Examination: [] Very large woman her BMI is 62 she is resting the bed no distress her lungs and heart tones are distant the abdomen is obese but soft nontender she has redness and warmth of both lower extremities , no petechia purpura skin breakdown she states she has not suffered any trauma to her legs and typically when she gets cellulitis there is no obvious skin defect her feet appear symmetrically well perfused she is able to move all 4 extremities complains of myalgias but no obvious joint pain or joint stiffness or effusions , she has had prior immunologic studies and rheumatologic studies related to the joint pains that were negative neurologically awake and alert moving all 4 Test Results: [] Emergency Department Course and Treatment: [] Given all of the above screening labs IV fluids IV antibiotics, The patient's lab studies are generally unremarkable lactate pending she has not with IV fluids IV antibiotics given her history of refractory cellulitis failed outpatient management the past fact she was just admitted to the hospital discharged 2 weeks ago for same I have asked the hospital see her further management and admission we reviewed antibiotic management with them they will determine if antibiotics need to be adjusted anyway Treatment Plan: [] Disposition: [] Admit stable Impression: [] Bilateral lower extremity cellulitis diabetes This note was generated with [employer] dictation software. It may contain incorrect words, spelling, and punctuation that were not noted in review of the chart prior to signing ED Disposition - Plan for ED Patient: Chief Complaint: Other, Pain/Inj Referrals: Lazarus Arcos MD [Primary Care Provider] -
[2017-12-02] MEDS: 0.9% Normal Saline 1,000 ML 100 ML IV (14:02)
[2017-12-02] MEDS: morphine 8 MG/ML Syringe 6 MG IV (14:06)
[2017-12-02] MEDS: Ondansetron 4 MG/2 ML Vial IV (14:06)
[2017-12-02 14:16] LABS: Absolute Lymphocyte Count 0.76 X10^3/ul (0.83-4.51); Absolute Neutrophil Count 8.1 X10^3/uL (2.0-7.7); Basophil# 0.02 X10^3/uL; Basophil% 0.2 % (0-1); Eosinophil# 0.16 X10^3/uL; Eosinophils% 1.7 % (0-5); Hematocrit 38.3 % (37-47); Hemoglobin 12.1 g/dl (12.0-15.0); Lymphocyte # 0.76 X10^3/ul (4.0); Lymphocyte % 8.2 % (19-41); Mean Corp Hgb Conc 31.6 g/gl (32-36); Mean Corpuscular Hgb 28.6 pg (27.0-32.0); Mean Corpuscular Volume 90.5 fL (81-99); Mean Platelet Vol. 11.1 fl (6.2-12.0); Monocyte# 0.23 X10^3/uL; Monocyte% 2.5 % (0-10); Neutrophil # 8.05 X10^3/uL (2.7-7.7); Neutrophil % 87.1 % (47-70); Platelet Count 206 K/mm3 (150-450); RBC Distribution Width CV 15.4 % (11.6-14.6); RBC Distribution Width SD 50.7 fl (35.1-43.9); Red Blood Count 4.23 M/mm3 (4.2-5.4); White Blood Count 9.3 K/mm3 (4.4-11.0)
[2017-12-02 14:17] LABS: POSITIVE COUNT NO; POSITIVE DIFFERENTIAL NO; POSITIVE MORPHOLOGY NO
[2017-12-02 14:29] LABS: Anion Gap 9 (5-15); BUN 19 mg/dL (7-18); BUN/Creat Ratio 22.2 RATIO (10-20); Calcium,Total 8.9 mg/dL (8.5-10.1); Chloride 105 mmol/L (98-107); Creatinine, Serum 0.86 mg/dL (0.55-1.02); EST Glomerular Filtration Rate 74 mL/min (>60); Est Glom Filt Rate - Afr Amer 89 mL/min (>60); Estimated Creatinine Clearance 70.82 ml/min; Glucose 115 mg/dL (74-106); Sodium Level 140 mmol/L (136-145)
--- NOTE | 2017-12-02 14:42 | NURSING ---
HOSPITALIST FOR DR JACKSON
[2017-12-02 14:47] LABS: Lactic Acid 1.2 mmol/L (0.4-2.0)
--- NOTE | 2017-12-02 14:49 | NURSING ---
MED SURG BILATERAL LEG CELLULITIS ANNELIESE
[2017-12-02 15:14] VITALS: BP 123/72; PULSE 83; RESP 16; O2SAT 98
[2017-12-02 15:19] VITALS: BP 123/72; PULSE 83; RESP 16; O2SAT 98
[2017-12-02 15:43] VITALS: BMI 62.7
--- NOTE | 2017-12-02 15:59 | PCM.HP.STD ---
History of Present Illness Date of Admission: 12/02/17 The patient is a 52 year old F with morbid obesity and chronic venous insufficiency of both lower extremities. recently admitted and treated for leg cellulitis. Again presenting with similar symptoms of pain and redness in the right leg but only pain in the left leg. Low grade fever noted, nor chills or malaise. Appetite is fair. Cannot recall any trauma, trivial or otherwise, to either extremity. Describes the pain as burning in nature. [] Past Medical History Past Medical History (Chronic Problems): Chronic Problems Sleep apnea (Chronic) GERD (gastroesophageal reflux disease) (Chronic) HTN (hypertension) (Chronic) Diabetes (Chronic) Obesity, morbid, BMI 50 or higher (Chronic) Allergies ciprofloxacin [From Cipro] Allergy (Verified 12/02/17 14:15) Itching ciprofloxacin HCl [From Cipro] Allergy (Verified 11/15/17 17:58) Unknown erythromycin base [Erythromycin Base] Allergy (Verified 12/02/17 14:15) Nausea metronidazole [From Flagyl] Allergy (Verified 12/02/17 14:15) Anaphylaxis oxycodone Allergy (Verified 12/02/17 14:15) Itching Penicillins Allergy (Verified 12/02/17 14:15) swelling (when she was an infant) Tetracyclines Allergy (Verified 12/02/17 14:15) Nausea meloxicam [From Mobic] Adverse Reaction (Verified 12/02/17 14:15) elevates BP states elevated bp Home Medications: Ambulatory Orders Medication Instructions Recorded Aspirin [Aspirin, Baby] 81 mg PO DAILY@0800 07/01/13 Celecoxib [Celebrex] 100 mg PO BID 07/01/13 Levothyroxine [Synthroid] 175 mcg PO DAILY 07/01/13 Metformin HCl [Glucophage] 500 mg PO BREAKFAST 12/12/13 Lansoprazole [Prevacid] 30 mg PO DAILY 12/30/15 Bupropion HCl [Wellbutrin Sr] 150 mg PO BID 04/24/17 Atorvastatin Calcium [Lipitor] 40 mg PO QHS 11/15/17 Furosemide [Lasix] 40 mg PO DAILY 11/15/17 Losartan Potassium [Cozaar] 100 mg PO DAILY 11/15/17 Metoprolol Succinate 25 mg PO BID 11/15/17 Fexofenadine HCl [Machelle Allergy] 180 mg PO QHS 11/16/17 Loperamide HCl [Anti-Diarrheal] 2 mg PO DAILY 12/02/17 Surgical History: adenoidectomy, appendectomy, tonsillectomy, - - Back surgerymicrodissectomy Psychiatric History: No pertinent psych hx [employer] 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 Denies: Anorexia, Chills, Night Sweats, Malaise, Weakness, Fatigue Cardiovascular: Denies: Chest Pain, Claudication, Chest Tightness, Edema, Heaviness, Light Headedness, Orthopnea Respiratory: Denies: Cough, Shortness of breath upon exertion Gastrointestinal: Denies: Vomiting Skin: Reports: Skin Changes VTE Information - Inpt Only VTE Present on Admission: Yes - Physical Exam General: Alert, Oriented x3, Cooperative, No apparent distress, Well developed, Well nourished HEENT: Atraumatic Oral: Moist Mucosa Neck: Supple Lungs: Clear to auscultation, Normal air movement, No rhonchi, No wheeze, No rales Cardiovascular: Regular rate, Regular Rhythm, Normal S1, Normal S2, No murmurs, No Ectopic Activity Abdomen: Soft, Non Tender, Non-Distended, No Hepato-splenomegaly Extremities: No clubbing, - - redness and swelling and induration and warmth in the lower 1/2 of right leg. tenderness ++, tenderness to squeeze in the same distribution on the left Skin: - - redness as noted Neurological: Cranial nerves II-XII grossly intact, Neuro grossly intact, Motor Exam 5/5 strength throughout Psych/Mental Status: Normal Affect, Appropriate, Alert and oriented to time, place, person, mood and affect Vital Signs Temp Pulse Resp BP Pulse Ox 98.9 F 83 16 123/72 H 98 12/02/17 13:09 12/02/17 15:19 12/02/17 15:19 12/02/17 15:19 12/02/17 15:19 Oxygen Delivery Method Room Air Weight: 176.3 kg Body Mass Index (BMI) 62.7 Assessment/Plan All Active Problems Cellulitis (Acute) 1. Bilateral leg cellulitis. Recurrent. R>L. Will start on IV Cefazolin and Doxycycline to cover Gp A strep and MRSA. More likely the former Morbid obesity, chronic venous stasis and DM predisposing to recurrence Elevate both legs 2. DM2. Continue home regimen of OHAs Diabetic diet 3. Morbid obesity. Weight loss will be lester. 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
[2017-12-02 17:26] LABS: Bedside Glucose 116 mg/dL (70-110)
[2017-12-02] MEDS: Gabapentin 300 MG Capsule PO (18:22)
[2017-12-02] MEDS: Acetaminophen 500 MG Tablet 1000 MG PO ×2 (18:23→23:51)
[2017-12-02 20:45] VITALS: BP 106/58; PULSE 77; RESP 16; TEMP 36.9; O2SAT 95
[2017-12-02] MEDS: Doxycycline 100 MG CAPSULE PO (20:58)
[2017-12-02] MEDS: Cefazolin 2 GM in 0.9% Normal Saline 100 ML IV (20:58)
[2017-12-02] MEDS: buPROPion (SR) 150 MG Tablet.SA PO (20:58)
[2017-12-02] MEDS: Atorvastatin Calcium 40 MG Tablet PO (20:58)
[2017-12-02] MEDS: Celecoxib 100 MG Capsule PO (20:58)
[2017-12-02 21:21] LABS: Bedside Glucose 148 mg/dL (70-110)
[2017-12-03 03:39] VITALS: BP 110/53; PULSE 69; RESP 16; TEMP 36.6; O2SAT 96
[2017-12-03] MEDS: Acetaminophen 500 MG Tablet 1000 MG PO ×3 (05:56→18:30)
[2017-12-03] MEDS: Cefazolin 2 GM in 0.9% Normal Saline 100 ML IV ×3 (05:56→23:01)
[2017-12-03] MEDS: Levothyroxine 175 MCG Tablet PO (05:56)
[2017-12-03] MEDS: 0.9% NaCl Peripheral Flush Adult/Peds IV ×3 (05:56→23:02)
[2017-12-03 07:36] LABS: Bedside Glucose 134 mg/dL (70-110)
[2017-12-03 08:03] VITALS: BP 130/58; PULSE 68; RESP 18; TEMP 36.6; O2SAT 98
[2017-12-03] MEDS: Aspirin 81 MG TAB.CHEW PO (08:16)
[2017-12-03] MEDS: Gabapentin 300 MG Capsule PO ×3 (08:16→23:00)
[2017-12-03 09:53] VITALS: BP 130/58; PULSE 68
[2017-12-03] MEDS: Doxycycline 100 MG CAPSULE PO ×2 (09:53→23:02)
[2017-12-03] MEDS: Losartan Potassium 100 MG Tablet PO (09:53)
[2017-12-03] MEDS: Celecoxib 100 MG Capsule PO ×2 (09:53→23:01)
[2017-12-03] MEDS: Metoprolol Tartrate 25 MG Tablet PO ×2 (09:53→23:01)
[2017-12-03] MEDS: buPROPion (SR) 150 MG Tablet.SA PO ×2 (09:54→23:01)
[2017-12-03] MEDS: Enoxaparin 40 MG/0.4 ML Syringe SC (09:54)
[2017-12-03 11:11] LABS: Bedside Glucose 170 mg/dL (70-110)
--- NOTE | 2017-12-03 11:13 | NURSING ---
DR MERRITT HERE ON DEPARTMENT. MADE HIM AWARE OF PT C/O FEELING DIZZY, WOOZY WHEN UP
--- NOTE | 2017-12-03 11:18 | PCM.PN.HOSP ---
Subjective: Patient has history of recurrent cellulitis, third episode since April 2017. She had first-time cellulitis of lower legs about 4 years ago. His chronic bilateral lower leg swelling, edematous with flat feet probably venous hypertension and lymphedema. Patient complain of dizziness, woozy when she is up. She is on Neurontin 300 mg Vitals/I&O's: Vital Signs Temp Pulse Resp BP Pulse Ox 97.8 F 68 18 130/58 H 98 12/03/17 08:03 12/03/17 09:53 12/03/17 08:03 12/03/17 09:53 12/03/17 08:03 Oxygen Delivery Method Room Air Weight: 388 lb 10.799 oz Body Mass Index (BMI) 62.7 Intake and Output for Last 24 Hours 12/01/17 12/02/17 12/03/17 23:59 23:59 23:59 Intake Total 650 / 650 394 / 394 Output Total 1200 / 1200 Balance 650 / 650 -806 / -806 General: Alert, Oriented x3, Cooperative HEENT: Atraumatic, PERRLA, EOMI, Normocephalic Neck: Supple, No JVD, Negative Carotid Bruits Lungs: Clear to auscultation, Diminished Cardiovascular: Regular rate, Regular Rhythm, Normal S1, Normal S2, No murmurs Abdomen: Bowel Sounds Present, Soft, Non Tender Extremities: Capillary Refill Less than 3 Seconds, Edema Skin: No breakdown, Rash Present - Bilateral lower legs erythematous, tender, warm. Multiple scar present in both lower legs around the ankle region. Patient uses brace in both legs for flat feet in order to prevent rollover. Chronic thickening and fibrosis of skin and subcutaneous tissue of lower legs Musculoskeletal: No Tenderness to Palpation of Joints or Extremities Neurological: Cranial nerves II-XII grossly intact Psych/Mental Status: Normal Affect, Appropriate Laboratory Results 12/02/17 17:16: POC Glucose 116 H 12/02/17 21:11: POC Glucose 148 H 12/03/17 07:29: POC Glucose 134 H 12/03/17 11:02: POC Glucose 170 H Current Medications Acetaminophen (Tylenol) 1,000 mg PO Q6 [facility] Last Admin: 12/03/17 05:56 Dose: 1,000 mg Aspirin (Aspirin, Baby) 81 mg PO DAILY@0800 [facility] Last Admin: 12/03/17 08:16 Dose: 81 mg Atorvastatin Calcium (Lipitor) 40 mg PO QHS [facility] Last Admin: 12/02/17 20:58 Dose: 40 mg Bupropion HCl (Wellbutrin Sr (150mg Tablets)) 150 mg PO BID [facility] Last Admin: 12/03/17 09:54 Dose: 150 mg Celecoxib (Celebrex) 100 mg PO BID [facility] Last Admin: 12/03/17 09:53 Dose: 100 mg Dextrose (D50w Syringe) 0 gm IV X1 PRN; Protocol PRN Reason: Hypoglycemia Doxycycline Monohydrate (Doxycycline) 100 mg PO Q12 [facility] Last Admin: 12/03/17 09:53 Dose: 100 mg Enoxaparin Sodium (Lovenox) 40 mg SC DAILY@1000 [facility] Last Admin: 12/03/17 09:54 Dose: 40 mg Gabapentin (Neurontin) 300 mg PO TIDCM [facility] Last Admin: 12/03/17 08:16 Dose: 300 mg Glucagon () 1 mg IM .X1 PRN PRN Reason: Hypoglycemia Cefazolin Sodium 2 gm/ Sodium (Chloride) 110 mls @ 150 mls/hr IV Q8 [facility] Last Admin: 12/03/17 05:56 Dose: 150 mls/hr Levothyroxine Sodium (Synthroid) 175 mcg PO DAILY@0600 [facility] Last Admin: 12/03/17 05:56 Dose: 175 mcg Losartan Potassium (Cozaar) 100 mg PO DAILY [facility] Last Admin: 12/03/17 09:53 Dose: 100 mg Magnesium Hydroxide (Milk Of Magnesia) 30 ml PO DAILY PRN PRN PRN Reason: Constipation Metformin HCl (Glucophage) 500 mg PO BREAKFAST [facility] Last Admin: 12/03/17 08:16 Dose: 500 mg Metoprolol Tartrate (Lopressor (Beta Jaspreet)) 25 mg PO BID [facility] Last Admin: 12/03/17 09:53 Dose: 25 mg Sodium Chloride () 5 - 30 ml IV UD PRN PRN Reason: SALINE FLUSH Last Admin: 12/03/17 05:56 Dose: 10 ml Medical Necessity - Tobacco Use Smoking Status: Former smoker Assessment/Plan All Active Problems Cellulitis (Acute) 51-year-old female with history of morbid obesity, chronic venous insufficiency/venous hypertension and lymphedema of both lower extremities with flat feet is admitted with recurrent bilateral lower leg cellulitis. She denies any open ulcer/recent trauma. 1. Bilateral leg cellulitis. Recurrent. R>L. I think etiologies venous hypertension/lymphedema. Consult wound care nurse to address lymphedema. Order Selector consult for flat feet. Venous Doppler of November 09, 2017 shows no evidence of DVT on either leg. Valvular competence appears intact. Right great saphenous vein absent. Left great saphenous vein, Peroneal veins and proximal posterior tibial veins on either side were not visualized. on IV Cefazolin and Doxycycline to cover Gp A strep and MRSA. More likely the former. MRSA nasal screen ordered. Morbid obesity, chronic venous stasis and DM predisposing to recurrence Elevate both legs 2. DM2. Continue home regimen of OHAs Diabetic diet 3. Morbid obesity. Weight loss will be lester. 4. Ostearthritis. Continue on Celecoxib Dizziness probably from high-dose of Neurontin: Decrease the frequency of Neurontin from 300 mg 3 times daily to 300 mg at bedtime daily. Laboratory Results 12/02/17 14:05: WBC 9.3, RBC 4.23, Hgb 12.1, Hct 38.3, MCV 90.5, MCH 28.6, MCHC 31.6 L, RDW 15.4 H, RDW Differential 50.7 H, Plt Count 206, MPV 11.1, Immature Gran % (Auto) 0.300, Neut % (Auto) 87.1 H, Lymph % (Auto) 8.2 L, Drew % (Auto) 2.5, Eos % (Auto) 1.7, Baso % (Auto) 0.2, Absolute Neuts (auto) 8.1 H, Absolute Lymphs (auto) 0.76 L, Total Counted Not Reportable 12/02/17 14:05: Sodium 140, Potassium 4.0, Chloride 105, Carbon Dioxide 26.0, Anion Gap 9, BUN 19 H, Creatinine 0.86, Estim Creat Clear Calc 70.82, Est GFR (MDRD) Af Amer 89, Est GFR (MDRD) Non-Af 74, BUN/Creatinine Ratio 22.2 H, Glucose 115 H, Calcium 8.9 12/02/17 14:05: Lactic Acid 1.2 12/02/17 17:16: POC Glucose 116 H 12/02/17 21:11: POC Glucose 148 H 12/03/17 07:29: POC Glucose 134 H 12/03/17 11:02: POC Glucose 170 H Active Medications Acetaminophen (Tylenol) 1,000 mg PO Q6 [facility] Last Admin: 12/03/17 05:56 Dose: 1,000 mg Aspirin (Aspirin, Baby) 81 mg PO DAILY@0800 [facility] Last Admin: 12/03/17 08:16 Dose: 81 mg Atorvastatin Calcium (Lipitor) 40 mg PO QHS [facility] Last Admin: 12/02/17 20:58 Dose: 40 mg Bupropion HCl (Wellbutrin Sr (150mg Tablets)) 150 mg PO BID [facility] Last Admin: 12/03/17 09:54 Dose: 150 mg Celecoxib (Celebrex) 100 mg PO BID [facility] Last Admin: 12/03/17 09:53 Dose: 100 mg Dextrose (D50w Syringe) 0 gm IV X1 PRN; Protocol PRN Reason: Hypoglycemia Doxycycline Monohydrate (Doxycycline) 100 mg PO Q12 [facility] Last Admin: 12/03/17 09:53 Dose: 100 mg Enoxaparin Sodium (Lovenox) 40 mg SC DAILY@1000 [facility] Last Admin: 12/03/17 09:54 Dose: 40 mg Gabapentin (Neurontin) 300 mg PO TIDCM [facility] Last Admin: 12/03/17 08:16 Dose: 300 mg Glucagon () 1 mg IM .X1 PRN PRN Reason: Hypoglycemia Cefazolin Sodium 2 gm/ Sodium (Chloride) 110 mls @ 150 mls/hr IV Q8 [facility] Last Admin: 12/03/17 05:56 Dose: 150 mls/hr Levothyroxine Sodium (Synthroid) 175 mcg PO DAILY@0600 [facility] Last Admin: 12/03/17 05:56 Dose: 175 mcg Losartan Potassium (Cozaar) 100 mg PO DAILY [facility] Last Admin: 12/03/17 09:53 Dose: 100 mg Magnesium Hydroxide (Milk Of Magnesia) 30 ml PO DAILY PRN PRN PRN Reason: Constipation Metformin HCl (Glucophage) 500 mg PO BREAKFAST [facility] Last Admin: 12/03/17 08:16 Dose: 500 mg Metoprolol Tartrate (Lopressor (Beta Jaspreet)) 25 mg PO BID [facility] Last Admin: 12/03/17 09:53 Dose: 25 mg Sodium Chloride () 5 - 30 ml IV UD PRN PRN Reason: SALINE FLUSH Last Admin: 12/03/17 05:56 Dose: 10 ml Code Visit Inpatient E&M: 44276 Subs Hosp L2
[2017-12-03 12:39] VITALS: BP 106/65; PULSE 61; RESP 18; TEMP 36.2; O2SAT 98
--- NOTE | 2017-12-03 15:25 | PCM.PROGNOTE ---
Patient Problems: Active and Suspected Problems Venous insufficiency (Acute) Lymphedema of lower extremity (Acute) Cellulitis (Acute) Subjective: This 52-year-old diabetic female was consulted to podiatry after being admitted through the emergency room yesterday for bilateral lower extremity erythema/cellulitis as well as edema to bilateral lower extremities, as well as bilateral flat feet. Patient was also admitted for the same issue in April and October of this year. Patient said she noticed the legs becoming slightly irritated on Sunday evening. She said she has worn compression stockings in the past as well as has a pair of lymphedema pumps but she has not kept up with wearing these. Patient is currently sitting on the edge of her bed and in no apparent distress. Patient says she feels well and is in no pain. She says her lower legs continue to look better since yesterday. She denies any trauma or any open areas to the lower extremity. Patient denies any feelings of nausea, vomiting, fever, chills. - Physical Exam General: Alert, Oriented x3, Cooperative, No apparent distress Extremities: Capillary Refill Less than 3 Seconds - to distal digits bilateral, No Calf Tenderness - Negative Chele and Varner sign bilateral, Diminished Peripheral Pulses, Edema - Bilateral lower extremity edema Skin: - - There is bilateral hemosiderin deposit skin changes appreciated to the lower extremity, with right being worse than left, as this is the side that she had a venous ablation procedure performed on in the past. Some slight erythema noted to bilateral lower extremities, however this is improved according to the patient. The areas of erythema have also receded from where the area had been outlined upon admission with surgical marker. There are no open ulcers or wounds appreciated to bilateral lower extremities at this time. No increase in warmth appreciated. Musculoskeletal: No Tenderness to Palpation of Joints or Extremities, - - No tenderness with manipulation of the bilateral lower extremities Neurological: Sensory exam intact to light touch and pain Psych/Mental Status: Normal Affect, Appropriate Vital Signs Temp Pulse Resp BP Pulse Ox 97.2 F L 61 18 106/65 98 12/03/17 12:39 12/03/17 12:39 12/03/17 12:39 12/03/17 12:39 12/03/17 12:39 Oxygen Delivery Method Room Air Weight: 176.3 kg Body Mass Index (BMI) 62.7 Intake and Output for Last 24 Hours 0912/02/17 12/03/17 23:59 23:59 23:59 Intake Total 650 / 650 1014 / 1014 Output Total 2300 / 2300 Balance 650 / 650 -1286 / -1286 Laboratory Tests Past 24 Hrs 12/03/17 14:06 MRSA (PCR) Pending POC Glucose 12/03/17 12/03/17 12/02/17 11:02 07:29 21:11 POC Glucose 170 H 134 H 148 H 12/02/17 17:16 POC Glucose 116 H Medical Necessity - Tobacco Use Smoking Status: Former smoker Assessment/Plan All Active Problems Venous insufficiency (Acute) Lymphedema of lower extremity (Acute) Cellulitis (Acute) Bilateral lymphedema lower extremities Bilateral venous insufficiency lower extremities Pes planus bilateral Resolving cellulitis of the lower extremity bilateral Obesity Diabetes This 52-year-old diabetic female was carefully examined and evaluated bedside this evening. The patient's WBC was 9.3 when tested yesterday. Currently, vital signs are stable. Patient feeling well. Patient was consulted to podiatry so the patient could have someone to follow up with for her lymphedema as well as her flat feet. Patient informs me that she already sees Dr. Burt with the [facility] for her lower extremity bracing to help her flat foot deformities. Patient also has a vascular surgeon that she sees that is also affiliated with the [facility]. Patient also relates that she has lymphedema pumps at her house that she has not used for a while. I suggest the patient begin using these again upon discharge. I feel the patient would also benefit from a new consult with lymphedema clinic to re evaluate this patient as an outpatient. The patient refused any compression dressings this evening. I advised her that if she wanted to refuse these, that she has to keep her feet elevated with pillows while in bed. She agreed to this. The patient was educated on the importance of keeping compression to her lower extremities in order to keep the issue under control so she does not keep ending up in the hospital. She says she understands this. At this time, upon the patient's request, I recommend the patient follow up with Dr. Burt, her data entry operator, in order to keep a close follow up on both her lower extremity edema as well as her pes planus deformities. I also recommend the patient follow up with her vascular surgeon as well as the lymphedema clinic as an outpatient. She agrees to all of this. At this time, this patient can be followed on an as needed basis by podiatry. Please let me know if there are any questions.
[2017-12-03 15:58] LABS: M R Staph aureus DNA By PCR Negative (Negative); Probe Check PASS; Specimen Processing Control PASS
[2017-12-03 16:40] LABS: Bedside Glucose 131 mg/dL (70-110)
[2017-12-03 22:50] VITALS: BP 122/71; PULSE 69; RESP 18; TEMP 36.8; O2SAT 99
[2017-12-03 23:01] VITALS: BP 122/71; PULSE 69
[2017-12-03] MEDS: Atorvastatin Calcium 40 MG Tablet PO (23:01)
[2017-12-03] MEDS: traMADol 50 MG Tablet PO (23:33)
[2017-12-04 00:15] LABS: Bedside Glucose 139 mg/dL (70-110)
[2017-12-04 03:20] VITALS: BP 104/66; PULSE 64; RESP 18; TEMP 36.6; O2SAT 94
[2017-12-04] MEDS: Cefazolin 2 GM in 0.9% Normal Saline 100 ML IV (06:40)
[2017-12-04] MEDS: Levothyroxine 175 MCG Tablet PO (06:40)
[2017-12-04] MEDS: 0.9% NaCl Peripheral Flush Adult/Peds IV ×2 (06:40→08:31)
[2017-12-04] MEDS: Acetaminophen 500 MG Tablet 1000 MG PO (06:40)
[2017-12-04 06:55] LABS: Bedside Glucose 122 mg/dL (70-110)
[2017-12-04] MEDS: Doxycycline 100 MG CAPSULE PO (08:24)
[2017-12-04] MEDS: Aspirin 81 MG TAB.CHEW PO (08:24)
[2017-12-04 08:25] VITALS: PULSE 65
[2017-12-04] MEDS: Metoprolol Tartrate 25 MG Tablet PO (08:25)
[2017-12-04] MEDS: buPROPion (SR) 150 MG Tablet.SA PO (08:25)
[2017-12-04] MEDS: Losartan Potassium 100 MG Tablet PO (08:25)
[2017-12-04] MEDS: Celecoxib 100 MG Capsule PO (08:25)
[2017-12-04] MEDS: Enoxaparin 40 MG/0.4 ML Syringe SC (08:27)
[2017-12-04 08:30] VITALS: BP 134/87; PULSE 65; RESP 18; TEMP 36.8; O2SAT 99
--- NOTE | 2017-12-04 09:48 | PCM.DC ---
- Discharge Diagnoses Current Active Problems: Current Active and Chronic Problems Lymphedema of lower extremity (Acute) Venous insufficiency (Acute) Cellulitis (Acute) Diabetes (Chronic) Obesity, morbid, BMI 50 or higher (Chronic) You will use the following diet at home:: Regular Discharge Activity: May Not Drive - for 1 week for lower legs cellulitis, May not drive while taking narcotic pain medications. Call your doctor if you observe: Fever of 101 or Higher Additional Instructions: Follow-up with lymphedema clinic. Patient instructed to use lymphedema boot. Agustin wrap bandage and flat feet braces while walking. Keep the lower legs elevated while on bed Allergies/Adverse Reactions: Allergies ciprofloxacin [From Cipro] Allergy (Verified 12/02/17 14:15) Itching ciprofloxacin HCl [From Cipro] Allergy (Verified 11/15/17 17:58) Unknown metronidazole [From Flagyl] Allergy (Verified 12/02/17 14:15) Anaphylaxis Penicillins Allergy (Verified 12/02/17 14:15) swelling (when she was an infant) erythromycin base [Erythromycin Base] Adverse Reaction (Verified 12/02/17 16:25) Nausea meloxicam [From Mobic] Adverse Reaction (Verified 12/02/17 14:15) elevates BP states elevated bp oxycodone Adverse Reaction (Verified 12/02/17 16:25) Itching Tetracyclines Adverse Reaction (Verified 12/02/17 16:25) Nausea Medications to take at Discharge Aspirin [Aspirin, Baby] 81 mg PO DAILY@0800 07/01/13 Celecoxib [Celebrex] 100 mg PO BID 07/01/13 Levothyroxine [Synthroid] 175 mcg PO DAILY 07/01/13 Metformin HCl [Glucophage] 500 mg PO BREAKFAST 12/12/13 Lansoprazole [Prevacid] 30 mg PO DAILY 12/30/15 Bupropion HCl [Wellbutrin Sr] 150 mg PO BID 04/24/17 Atorvastatin Calcium [Lipitor] 40 mg PO QHS 11/15/17 Furosemide [Lasix] 40 mg PO DAILY 11/15/17 Losartan Potassium [Cozaar] 100 mg PO DAILY 11/15/17 Metoprolol Succinate 25 mg PO BID 11/15/17 Fexofenadine HCl [Machelle Allergy] 180 mg PO QHS 11/16/17 Loperamide HCl [Anti-Diarrheal] 2 mg PO DAILY PRN PRN 12/02/17 Cefadroxil 1 gm PO BID #10 tab 12/04/17 The following prescriptions were given: Cefadroxil 1 gm PO BID #10 tab Primary Care Physician: Lazarus Arcos MD [Primary Care Provider] - Please follow up with your Primary Care Physician in: in 1-2 weeks Test Results: Test results from this visit will be discussed in further detail at your follow-up appointment, if applicable. Please Follow Up With: Nanci Burt DPM
--- NOTE | 2017-12-04 09:50 | NURSING ---
Was asked to see patient for redness and edema to bilateral lower legs. pt states she has compression stockings at home as well as lymphedema pumps. pt has not been compliant with either of them. pt currently has no open areas. there is still some slight redness noted to the right lower leg. minimal edema noted. patient is morbidly obese and legs are large. pt states she has difficulty with compression wraps d/t them bunching at the ankles. states she just got some new stockings that she plans to wear when she gets home. pt denies further needs at this time. Dr Harding plan to send patient home today.
--- NOTE | 2017-12-04 09:53 | PCM.DC.SUM ---
Discharge Date and Diagnosis - Problem List Patient Problems: Active and Suspected Problems Lymphedema of lower extremity (Acute) Venous insufficiency (Acute) Cellulitis (Acute) Date of Admission: 12/02/17 Date of Discharge: 12/04/17 - Primary Discharge Diagnosis Active and Suspected Problems Bilateral leg cellulitis. Recurrent. 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 She denies any open ulcer/recent trauma. Patient was admitted on regular floor. Was seen and examined today Patient had episode of dizziness and lightheaded when he stood up. Orthostatic vitals were taken does not show drop from supine to standing position; on contrary it went up. No increase in heart rate. On further query, patient takes Antivert at home for chronic dizziness. General: Alert, Oriented x3, Cooperative HEENT: Atraumatic, PERRLA, EOMI, Normocephalic Neck: Supple, No JVD, Negative Carotid Bruits Lungs: Clear to auscultation, Diminished Cardiovascular: Regular rate, Regular Rhythm, Normal S1, Normal S2, No murmurs Abdomen: Bowel Sounds Present, Soft, Non Tender Extremities: Capillary Refill Less than 3 Seconds, Edema Skin: No breakdown, Rash Present - Bilateral lower legs erythematous, tender, warm. Multiple healed scar present in both lower legs around the ankle region. Patient uses brace in both legs for flat feet in order to prevent rollover. Chronic thickening and fibrosis of skin and subcutaneous tissue of lower legs Musculoskeletal: No Tenderness to Palpation of Joints or Extremities Neurological: Cranial nerves II-XII grossly intact Psych/Mental Status: Normal Affect, Appropriate 1. Bilateral leg cellulitis. Recurrent. R>L; most probably exacerbating factors are venous hypertension/lymphedema. Consult wound care nurse to address lymphedema. Hydroelectric Production Technician consult for flat feet. Venous Doppler of November 09, 2017 shows no evidence of DVT on either leg. Valvular competence appears intact. Right great saphenous vein absent. Left great saphenous vein, Peroneal veins and proximal posterior tibial veins on either side were not visualized. on IV Cefazolin and Doxycycline to cover Gp A strep and MRSA. More likely the former. MRSA nasal screen negative. Doxycycline discontinued. Patient discharged on 5 more days of cefadroxil to complete a total 7 days of antibiotic. Patient has been treated with antibiotics multiple rounds as an outpatient also. Discussed with the diet is Dr. Veliz and wound nurse. It seems patient is noncompliant to follow-up with lymphedema clinic. She also refused for Agustin wrap bandage. She was advised to follow-up her aligner typewriter Dr. Burt. Follow with lymphedema clinic in 1-2 week. Morbid obesity, chronic venous stasis and DM predisposing to recurrence Elevate both legs 2. DM2. Continue home regimen of OHAs Diabetic diet 3. Morbid obesity. Weight loss will be lester. 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 Discharge meds reconciliation done. Follow-up instructions completed. Discharge Activity: May Not Drive - for 1 week for lower legs cellulitis, May not drive while taking narcotic pain medications. Call your doctor if you observe: Fever of 101 or Higher Home Medications: Medications to take at Discharge Aspirin [Aspirin, Baby] 81 mg PO DAILY@0800 07/01/13 Celecoxib [Celebrex] 100 mg PO BID 07/01/13 Levothyroxine [Synthroid] 175 mcg PO DAILY 07/01/13 Metformin HCl [Glucophage] 500 mg PO BREAKFAST 12/12/13 Lansoprazole [Prevacid] 30 mg PO DAILY 12/30/15 Bupropion HCl [Wellbutrin Sr] 150 mg PO BID 04/24/17 Atorvastatin Calcium [Lipitor] 40 mg PO QHS 11/15/17 Furosemide [Lasix] 40 mg PO DAILY 11/15/17 Losartan Potassium [Cozaar] 100 mg PO DAILY 11/15/17 Metoprolol Succinate 25 mg PO BID 11/15/17 Fexofenadine HCl [Machelle Allergy] 180 mg PO QHS 11/16/17 Loperamide HCl [Anti-Diarrheal] 2 mg PO DAILY PRN PRN 12/02/17 Cefadroxil 1 gm PO BID #10 tab 12/04/17 Following Prescrptions Were Given to Patient: Cefadroxil 1 gm PO BID #10 tab Primary Care Physician: Lazarus Arcos MD [Primary Care Provider] - Please follow up with your Primary Care Physician in: in 1-2 weeks Please Follow Up With: Nanci Burt DPM Medical Necessity - Tobacco Use Smoking Status: Former smoker Meaningful Use Info Meaningful Use Diagnoses (Choose all that apply): None applicable Code Visit Inpatient E&M: 15580 Disch Hosp
--- NOTE | 2017-12-04 10:45 | CASEMGMT ---
RN CM Face to Face with patient for initial transition planning/care coordination assessment. RN CM introduced self and role at [facility]. Patient sitting in chair, alert and oriented. Patient willing to participate in assessment and is able to answer all questions appropriately. Care providers, pharmacy, and demographics verified. Patient lives with family in 2 story house with bed and bath on 1st floor. Patient has raised toilet seat, walker, bipap, and shower chairs at home. Patient wishes to discharge home, denies need for home health at this time. Patient states that she lymphedema pumps at home and will see if they still work. Patient states that she will also follow-up with her vascular surgeon. Patient states she has no further needs or concerns at this time. CM to follow for discharge planning needs that may arise. Patient is a readmit from hospitalization form 11/15-11/18/17 for cellulitis. Patient was discharged with Cefadroxil. Patient also followed up with her PCP after discharge. Patient had a lace score of 9, strata 3. Disposition Plan: Patient to discharge home with family support and follow-up plans in place. Genet CARDONAN, RN, CM
[2017-12-04 12:14] VITALS: BP 130/84; PULSE 63; RESP 18; O2SAT 100
--- NOTE | 2017-12-04 12:22 | PCA ---
MADE APPOINTMENT FOR FOLLOWUP APPOINTMENT FOR [facility] Dec
[2017-12-04 12:31] VITALS: BP 119/70; BP 124/82; BP 133/81; PULSE 61; PULSE 63; PULSE 68
[2017-12-04 12:32] VITALS: RESP 20; TEMP 36.5; O2SAT 99
[2017-12-04] MEDS: Meclizine HCl 25 MG Tablet PO (12:35)
--- NOTE | 2017-12-06 15:01 | CASEMGMT ---
ANA CASAREZ DC PHONE CALL. DC DATE 12/04/17 LACE 9/STRATA 3 DC DISPOSITION: Home -Intro role of CM to patient via phone. Pt states she is improving well, is able to take her antibiotics and will finish dose. F/U is made with PCP for next week. No questions re: DC Instructions. Pt stated Dr. Harding was excellent in explaining things, and had an excellent bedside manner. No further questions. Davon CARDONAN RN ACM
== END 2017-12-04 13:45 | disposition home or self-care (01) | DRG 603 ==
LOC: ED 14:10 → MS3 15:10
PROVIDERS: Admitting Provider Internal Medicine; Emergency Provider Emergency Medicine; Family Provider Internal Medicine; PCP Internal Medicine; Visit Provider Internal Medicine
DX: L03.115 Cellulitis of right lower limb (principal); Z68.44 Body mass index [BMI] 60.0-69.9, adult; L03.116 Cellulitis of left lower limb; Z87.891 Personal history of nicotine dependence; E66.01 Morbid (severe) obesity due to excess calories; E11.9 Type 2 diabetes mellitus without complications; M19.90 Unspecified osteoarthritis, unspecified site; I89.0 Lymphedema, not elsewhere classified; I87.2 Venous insufficiency (chronic) (peripheral); I87.303 Chronic venous hypertension (idiopathic) without complications of bilateral lower extremity; G47.30 Sleep apnea, unspecified; K21.9 Gastro-esophageal reflux disease without esophagitis; I10 Essential (primary) hypertension; Z79.84 Long term (current) use of oral hypoglycemic drugs
CPT/HCPCS: 80048; 82962; 83605; 85025; 87641; 99284; J7030; A4216; J2405

== ENCOUNTER 2018-05-21 11:30 | Outpatient (RCR) | payer SELFPAY | END 2018-05-30 23:59 | LOC: NS 11:30 | PROVIDERS: Family Provider Internal Medicine; PCP Internal Medicine | DX: R69 Illness, unspecified (principal) | CPT/HCPCS: 97802; 97803 ==

== ENCOUNTER 2018-06-25 11:30 | Outpatient (RCR) | payer SELFPAY ==
[2017-12-02 15:43] VITALS: BMI 62.7
== END 2018-06-30 23:59 ==
LOC: NS 11:30
PROVIDERS: Family Provider Internal Medicine; PCP Internal Medicine
DX: R69 Illness, unspecified (principal); Z71.3 Dietary counseling and surveillance
CPT/HCPCS: 97803

== ENCOUNTER 2018-07-23 13:30 | Outpatient (RCR) | payer SELFPAY ==
[2017-12-02 15:43] VITALS: BMI 62.7
== END 2018-07-30 23:59 ==
LOC: NS 13:30
PROVIDERS: Family Provider Internal Medicine; PCP Internal Medicine
DX: R69 Illness, unspecified (principal)
CPT/HCPCS: 97803

== ENCOUNTER 2018-08-22 13:30 | Outpatient (RCR) | payer SELFPAY ==
[2017-12-02 15:43] VITALS: BMI 62.7
== END 2018-08-30 23:59 ==
LOC: NS 13:30
PROVIDERS: Family Provider Internal Medicine; PCP Internal Medicine
DX: R69 Illness, unspecified (principal)
CPT/HCPCS: 97803

== ENCOUNTER 2018-09-17 09:56 | Outpatient (RCR) | payer SELFPAY ==
[2017-12-02 15:43] VITALS: BMI 62.7
== END 2018-09-29 23:59 ==
LOC: NS 09:56
PROVIDERS: Family Provider Internal Medicine; PCP Internal Medicine
DX: R69 Illness, unspecified (principal); Z71.3 Dietary counseling and surveillance
CPT/HCPCS: 97803

== ENCOUNTER 2018-10-14 10:20 | Outpatient (RCR) | payer SELFPAY ==
[2017-12-02 15:43] VITALS: BMI 62.7
== END 2018-10-30 23:59 ==
LOC: NS 10:20
PROVIDERS: Family Provider Internal Medicine; PCP Internal Medicine
DX: R69 Illness, unspecified (principal)
CPT/HCPCS: 97803

== ENCOUNTER 2018-11-14 14:00 | Outpatient (RCR) | payer SELFPAY ==
[2017-12-02 15:43] VITALS: BMI 62.7
== END 2018-11-30 23:59 ==
LOC: NS 14:00
PROVIDERS: Family Provider Internal Medicine; PCP Internal Medicine
DX: R69 Illness, unspecified (principal); Z71.3 Dietary counseling and surveillance
CPT/HCPCS: 97803

== ENCOUNTER 2018-12-25 10:30 | Outpatient (RCR) | payer SELFPAY ==
[2017-12-02 15:43] VITALS: BMI 62.7
== END 2018-12-30 23:59 ==
LOC: NS 10:30
PROVIDERS: Family Provider Internal Medicine; PCP Internal Medicine
DX: R69 Illness, unspecified (principal); Z71.3 Dietary counseling and surveillance
CPT/HCPCS: 97803

== ENCOUNTER 2019-01-22 11:30 | Outpatient (RCR) | payer SELFPAY ==
[2017-12-02 15:43] VITALS: BMI 62.7
== END 2019-01-30 23:59 ==
LOC: NS 11:30
PROVIDERS: Family Provider Internal Medicine; PCP Internal Medicine
DX: R69 Illness, unspecified (principal); Z71.3 Dietary counseling and surveillance
CPT/HCPCS: 97803

== ENCOUNTER 2019-02-24 11:30 | Outpatient (RCR) | payer SELFPAY ==
[2017-12-02 15:43] VITALS: BMI 62.7
== END 2019-03-01 23:59 ==
LOC: NS 11:30
PROVIDERS: Family Provider Internal Medicine; PCP Internal Medicine
DX: Z71.3 Dietary counseling and surveillance (principal); R69 Illness, unspecified
CPT/HCPCS: 97803

== ENCOUNTER 2019-03-11 11:26 | Outpatient (RCR) | payer SELFPAY ==
[2017-12-02 15:43] VITALS: BMI 62.7
== END 2019-04-01 23:59 ==
LOC: NS 11:26
PROVIDERS: Family Provider Internal Medicine; PCP Internal Medicine
DX: Z71.3 Dietary counseling and surveillance (principal); R69 Illness, unspecified
CPT/HCPCS: 97803

== ENCOUNTER 2019-04-22 14:36 | Outpatient (RCR) | payer SELFPAY ==
[2017-12-02 15:43] VITALS: BMI 62.7
== END 2019-05-02 23:59 ==
LOC: NS 14:36
PROVIDERS: Family Provider Internal Medicine; PCP Internal Medicine
DX: Z71.3 Dietary counseling and surveillance (principal)

== ENCOUNTER 2019-08-19 15:35 | Outpatient (RCR) | payer SELFPAY ==
[2017-12-02 15:43] VITALS: BMI 62.7
== END 2019-08-31 23:59 ==
LOC: NS 15:35
PROVIDERS: Family Provider Internal Medicine; PCP Internal Medicine
DX: Z71.3 Dietary counseling and surveillance (principal)
CPT/HCPCS: 97803

== ENCOUNTER 2019-09-02 14:48 | Outpatient (RCR) | payer SELFPAY ==
[2017-12-02 15:43] VITALS: BMI 62.7
== END 2019-09-30 23:59 ==
LOC: NS 14:48
PROVIDERS: Family Provider Internal Medicine; PCP Internal Medicine
DX: Z71.3 Dietary counseling and surveillance (principal)
CPT/HCPCS: 97803

== ENCOUNTER 2019-10-22 13:30 | Outpatient (RCR) | payer SELFPAY ==
[2017-12-02 15:43] VITALS: BMI 62.7
== END 2019-10-22 23:59 | disposition home or self-care (01) ==
LOC: NS 13:30
PROVIDERS: Family Provider Internal Medicine; PCP Internal Medicine
DX: Z71.3 Dietary counseling and surveillance (principal)
CPT/HCPCS: 97803

== ENCOUNTER 2021-03-27 13:04 | Emergency (ER) | payer MEDICARE, SELFPAY ==
[2021-03-27 13:05] VITALS: BP 142/71; PULSE 97; RESP 16; TEMP 36.8; O2SAT 95; BMI 138.7
[2021-03-27 13:36] VITALS: BP 142/71; PULSE 97; RESP 16; TEMP 36.8; O2SAT 95
--- NOTE | 2021-03-27 13:41 | EDS_ITS ---
HPI History of Present Illness Chief Complaint: Lower Extremity Injury Detail of Chief Complaint: Right lower extremity cellulitis. Informant: patient Onset/Context/Timing Onset: Yesterday Context: Gradual Onset Timing: Continuous Current Severity: Mild Maximum Severity: Mild Narrative Narrative: 56-year-old female history nonspine diabetes with chronic bilateral lower extremity lymphedema. She had 2-day history of right lower extremity discomfort yesterday developed redness and now slightly worse today. Currently she is on Bactrim for UTI. She denies any fever or chills. She states she gets cellulitis about once a year. She has been treated for this as an outpatient in the past. Prior similar symptoms: Yes Recent Illness/Hospitalization: No PFSH [facility] Medical History Diabetes GERD (gastroesophageal reflux disease) Hypertension Hypothyroidism Lymphedema Home Medications aspirin 81 mg PO DAILY@0800 07/01/13 [History Last Taken 12/01/17] celecoxib 100 mg PO BID 07/01/13 [History Last Taken 12/01/17] levothyroxine 200 mcg PO DAILY 07/01/13 [History Last Taken 12/01/17] metformin 500 mg PO BREAKFAST 12/12/13 [History Last Taken 12/01/17] lansoprazole [Prevacid] 30 mg PO DAILY 12/30/15 [History Last Taken 12/01/17] bupropion HCl [Wellbutrin SR] 150 mg PO BID 04/24/17 [History Last Taken 12/01/17] atorvastatin 40 mg PO QHS 11/15/17 [History Last Taken 12/01/17] losartan 100 mg PO DAILY 11/15/17 [History Last Taken 12/01/17] loperamide [Anti-Diarrheal (loperamide)] 2 mg PO DAILY PRN PRN 12/02/17 [History Last Taken 12/01/17] carvedilol 12.5 mg PO DAILY 03/27/21 [History Last Taken Unknown] cephalexin 500 mg PO Q6H 10 Days #40 cap 03/27/21 [Rx Last Taken Unknown] chlorthalidone 12.5 mg PO DAILY 03/27/21 [History Last Taken Unknown] famotidine 20 mg PO QHS 03/27/21 [History Last Taken Unknown] loratadine [Claritin] 10 mg PO DAILY 03/27/21 [History Last Taken Unknown] Allergy/AdvReac Type Severity Reaction Status Date / Time ciprofloxacin [From Cipro] Allergy Itching Verified 03/27/21 13:05 ciprofloxacin HCl Allergy Unknown Verified 03/27/21 13:05 [From Cipro] metronidazole [From Flagyl] Allergy Anaphylaxis Verified 03/27/21 13:05 Penicillins Allergy swelling Verified 03/27/21 13:05 (when she was an ) erythromycin base AdvReac Nausea Verified 03/27/21 13:05 [Erythromycin Base] meloxicam [From Mobic] AdvReac elevates BP Verified 03/27/21 13:05 oxycodone AdvReac Itching Verified 03/27/21 13:05 Tetracyclines AdvReac Nausea Verified 03/27/21 13:05 Social History Smoking Status: Former smoker ROS ROS ED ROS Narrative Right lower extremity redness. Review of Systems ROS Unobtainable: Denies due to encephalopathy Constitutional Constitutional ED: Denies fever(s) or subjective Eyes Eyes: Denies change in vision ENT ENT ED: Denies ear pain Cardiovascular Cardiovascular: Denies chest pain or palpitations Respiratory/Chest Respiratory/Chest: Denies cough or dyspnea Gastrointestinal Gastrointestinal: Denies abdominal pain, diarrhea, nausea or vomiting Genitourinary Genitourinary ED: Denies dysuria Musculoskeletal Musculoskeletal: Reports myalgias Integumentary Reports rash Neurologic Neurologic: Denies headache(s) Psychiatric Psychiatric: Denies depression Endocrine Endocrinology: Denies polyuria Hematologic/Lymphatic Hematologic/Lymphatic: Denies easy bruising Allergic/Immunologic Allergic/Immunologic ED: Denies urticaria EXAM Physical Exam Narrative Exam Narrative: Right female no acute distress vital signs stable afebrile. Blood pressure 142/71. She does not look septic or toxic. HEENT exam unremarkable. Neck nontender. Lungs clear to auscultation bilaterally. Heart regular rhythm no murmur. Rate about 95. Abdomen morbidly obese with soft nontender normal bowel sounds no peritoneal signs. Moving all 4 extremities. She has cellulitis in her right lower leg. Also possibly mildly on the left. There is no lymphangitic streaking. There is no inguinal lymphadenopathy. There is no involvement of the joints. Const Vital Signs: 03/27/21 13:05 12/26/21 13:36 Temperature 98.3 F 98.3 F Temperature Source Temporal Temporal Pulse Rate 97 97 Respiratory Rate 16 16 Blood Pressure 142/71 H 142/71 H Blood Pressure Mean 94 94 Pulse Ox 95 95 Oxygen Delivery Method Room Air Room Air Positive well nourished, well developed and obese; Negative for cachectic, contractures or unkempt General Appearance ED: well developed and NAD; Negative for unkempt, cachectic or contractures Nutritional Appearance: obese; Negative for cachectic HEENT normocephalic and atraumatic; Negative for trauma or tenderness Eyes PERRL Neck full ROM and supple Thyroid: Negative for tender Chest Wall inspection of chest normal and palpation of chest normal Resp normal respiratory effort, no retractions and clear to auscultation bilaterally Auscultation: Negative for rales, rhonchi or wheezes Cardio regular rate, regular rhythm, S1 normal heart sound, S2 normal heart sound and no murmurs GI non-tender, non-distended and no masses Auscultation: normoactive bowel sounds Palpation: soft; Negative for tender, guarding or rebound tenderness present Extremity Extremity Narrative: Right lower extremity cellulitis. Tender skin. Just above the ankle. No lymphangitic streaking. No inguinal lymphadenopathy. Can flex extend both the hip, right knee and ankle. Dorsi plantarflexion intact. Minimal redness just above the left ankle. Neuro oriented x3 and moves all extremities Sensorium / Orientation: alert, oriented to person, oriented to place and oriented to time; Negative for orientation impaired, confused, lethargic or stuporous Motor Exam: strength 5/5 throughout Psych mental status grossly normal Appearance: Negative for unkempt Mood & Affect: Negative for anxious Skin no wounds Lesions: no lesions Rashes: No no rashes MDM MDM MDM Narrative Medical decision making narrative: Middle-aged diabetic female with recurrent lower extremity cellulitis. She is already on Bactrim currently for UTI. I will add Keflex given her first dose in the emergency department then 500 4 time s daily for 10 days. Follow-up with her primary care physician this week if worsening return to the emergency department. Discharge Plan Triage Chief Complaint: Lower Extremity Injury ED Provider: Erwin Cabrera Dx/Rx/DC Orders Clinical Impression: Cellulitis, Obesity, morbid, BMI 50 or higher, Diabetes, Lymphedema of lower extremity Instructions: ED Cellulitis Prescriptions: New cephalexin 500 mg capsule 500 mg PO Q6H 10 Days Qty: 40 RF: 0 No Action celecoxib 200 MG capsule 100 mg PO BID RF: 0 levothyroxine 137 MCG tablet 200 mcg PO DAILY RF: 0 aspirin 81 MG tablet,chewable 81 mg PO DAILY@0800 RF: 0 metformin 500 MG tablet 500 mg PO BREAKFAST RF: 0 lansoprazole [Prevacid] 30 MG capsule 30 mg PO DAILY RF: 0 bupropion HCl [Wellbutrin SR] 150 MG tablet sustained-release 12 hr 150 mg PO BID RF: 0 atorvastatin 40 MG tablet 40 mg PO QHS RF: 0 losartan 100 MG tablet 100 mg PO DAILY RF: 0 loperamide [Anti-Diarrheal (loperamide)] 2 MG tablet 2 mg PO DAILY PRN PRN (Reason: Diarrhea) RF: 0 carvedilol 12.5 mg tablet 12.5 mg PO DAILY RF: 0 chlorthalidone 25 mg Tablet 12.5 mg PO DAILY RF: 0 famotidine 20 mg Tablet 20 mg PO QHS RF: 0 loratadine [Claritin] 10 mg Tablet 10 mg PO DAILY RF: 0 Primary Care Provider: Lazarus Arcos Referrals: Lazarus Arcos MD [Primary Care Provider] - Activity Restrictions/Additional Instructions: Follow-up with your physician this week to ensure your cellulitis is improving. Return emergency department if feeling worse or the cellulitis is spreading. Continue your Bactrim twice a day till gone. Start the Keflex today 4 times a day for 10 days. Elevate your legs to decrease swelling. Motrin and/or Tylenol for pain. Disposition Disposition: Home, Self Care
[2021-03-27] MEDS: Cephalexin 250 MG Capsule 500 MG PO (13:56)
[2021-03-27 13:59] VITALS: RESP 88; O2SAT 95
== END 2021-03-27 14:01 | disposition home or self-care (01) ==
LOC: ED 13:50
PROVIDERS: Emergency Provider Emergency Medicine; PCP Internal Medicine
DX: L03.115 Cellulitis of right lower limb (principal); E66.01 Morbid (severe) obesity due to excess calories; Z68.43 Body mass index [BMI] 50.0-59.9, adult; E11.9 Type 2 diabetes mellitus without complications; I89.0 Lymphedema, not elsewhere classified; N39.0 Urinary tract infection, site not specified; I10 Essential (primary) hypertension; K21.9 Gastro-esophageal reflux disease without esophagitis; E03.9 Hypothyroidism, unspecified; Z79.82 Long term (current) use of aspirin; Z79.84 Long term (current) use of oral hypoglycemic drugs; Z79.1 Long term (current) use of non-steroidal anti-inflammatories (NSAID); Z79.899 Other long term (current) drug therapy; Z87.891 Personal history of nicotine dependence
CPT/HCPCS: 99283

== ENCOUNTER 2022-05-01 13:27 | Outpatient (RCR) | payer MEDICARE, SELFPAY | END 2022-05-02 23:59 | LOC: DC 13:27 | PROVIDERS: PCP Internal Medicine; Visit Provider Internal Medicine | DX: E11.9 Type 2 diabetes mellitus without complications (principal) | CPT/HCPCS: 97802 ==

== ENCOUNTER 2022-05-25 12:43 | Outpatient (RCR) | payer MEDICARE, SELFPAY | END 2022-05-30 23:59 | LOC: DC 12:43 | PROVIDERS: PCP Internal Medicine; Visit Provider Internal Medicine | DX: E11.9 Type 2 diabetes mellitus without complications (principal) | CPT/HCPCS: 97803 ==

== ENCOUNTER 2022-06-22 11:25 | Outpatient (RCR) | payer MEDICARE, SELFPAY | END 2022-06-30 23:59 | LOC: DC 11:25 | PROVIDERS: PCP Internal Medicine; Visit Provider Internal Medicine | DX: E11.9 Type 2 diabetes mellitus without complications (principal) | CPT/HCPCS: 97803 ==

== ENCOUNTER 2022-07-25 13:18 | Outpatient (RCR) | payer MEDICARE, SELFPAY | END 2022-07-30 23:59 | LOC: DC 13:18 | PROVIDERS: PCP Internal Medicine; Referring Provider Internal Medicine; Visit Provider Internal Medicine | DX: E11.9 Type 2 diabetes mellitus without complications (principal) | CPT/HCPCS: 97803 ==

== ENCOUNTER 2022-09-13 11:18 | Outpatient (RCR) | payer MEDICARE, SELFPAY | END 2022-09-29 23:59 | LOC: DC 11:18 | PROVIDERS: PCP Internal Medicine; Referring Provider Internal Medicine; Visit Provider Internal Medicine | DX: E11.9 Type 2 diabetes mellitus without complications (principal) ==

== ENCOUNTER 2022-11-02 13:48 | Outpatient (RCR) | payer SELFPAY | END 2022-11-30 23:59 | LOC: NS 13:48 | PROVIDERS: PCP Internal Medicine; Referring Provider Internal Medicine; Visit Provider Internal Medicine | DX: Z71.3 Dietary counseling and surveillance (principal); E11.9 Type 2 diabetes mellitus without complications | CPT/HCPCS: 97803 ==

== ENCOUNTER 2022-12-12 11:51 | Outpatient (RCR) | payer SELFPAY | END 2022-12-30 23:59 | LOC: NS 11:51 | PROVIDERS: PCP Internal Medicine; Referring Provider Internal Medicine; Visit Provider Internal Medicine | DX: E11.9 Type 2 diabetes mellitus without complications (principal) | CPT/HCPCS: 97803 ==

== ENCOUNTER 2022-12-16 00:25 | Emergency (ER) | payer MEDICARE, SELFPAY ==
[2022-12-16 00:28] VITALS: BP 129/63; PULSE 87; RESP 24; TEMP 37.2; O2SAT 99; BMI 56.6
--- NOTE | 2022-12-16 01:08 | EX.ED.VIS.UR ---
HPI HPI - URI History of Present Illness Chief Complaint: Shortness of Breath Informant: patient Narrative Narrative: Started having symptoms of a URI with headache, cough, low-grade fevers, myalgias, malaise yesterday. Positive COVID test at home today. Has a friend that is ill with the same symptoms. No dyspnea despite triage note claiming it. ROS ROS ED Constitutional Constitutional ED: Reports fever(s) and subjective; Denies chills ENT ENT ED: Reports nasal congestion and rhinorrhea; Denies sore throat Cardiovascular Cardiovascular: Denies chest pain or palpitations Respiratory/Chest Respiratory/Chest: Reports cough; Denies dyspnea Gastrointestinal Gastrointestinal: Denies abdominal pain, diarrhea, nausea or vomiting Genitourinary Genitourinary ED: Denies dysuria or hematuria Musculoskeletal Musculoskeletal: Reports myalgias; Denies neck pain Integumentary Denies abscess or rash Neurologic Neurologic: Reports headache(s); Denies paresthesias or weakness Psychiatric Psychiatric: Denies depression or suicidal thoughts Endocrine Endocrinology: Denies polydipsia or polyuria PFSH FOR[facility]LY [facility], [facility] Medical History Diabetes GERD (gastroesophageal reflux disease) Hypertension Hypothyroidism Lymphedema Home Medications aspirin 81 mg chewable tablet 81 mg PO DAILY@0800 heart health 07/01/13 [History Last Taken 12/01/17] celecoxib 200 mg capsule 100 mg PO BID arthritis 07/01/13 [History Last Taken 12/01/17] metformin 500 mg tablet 500 mg PO BREAKFAST diabetes 12/12/13 [History Last Taken 12/01/17] lansoprazole 30 mg capsule,delayed release (Prevacid) 30 mg PO DAILY stomach 12/30/15 [History Last Taken 12/01/17] bupropion HCl 150 mg tablet,12 hr sustained-release (Wellbutrin SR) 150 mg PO BID mood 04/24/17 [History Last Taken 12/01/17] atorvastatin 40 mg tablet 40 mg PO QHS CHOLESTEROL LOWERING 11/15/17 [History Last Taken 12/01/17] losartan 100 mg tablet 100 mg PO DAILY BLOOD PRESSURE 11/15/17 [History Last Taken 12/01/17] loperamide 2 mg tablet (Anti-Diarrheal (loperamide)) 2 mg PO DAILY PRN PRN Diarrhea 12/02/17 [History Last Taken 12/01/17] carvedilol 12.5 mg tablet 12.5 mg PO BID 03/27/21 [History Last Taken Unknown] cephalexin 500 mg capsule 500 mg PO Q6H 10 days #40 caps 03/27/21 [Rx Last Taken Unknown] chlorthalidone 25 mg tablet 12.5 mg PO DAILY 03/27/21 [History Last Taken Unknown] famotidine 20 mg tablet 20 mg PO QHS 03/27/21 [History Last Taken Unknown] loratadine 10 mg tablet (Claritin) 10 mg PO DAILY 03/27/21 [History Last Taken Unknown] albuterol 90 mcg/actuation aerosol inhaler 90 mcg inhalation TID PRN 12/16/22 [History Last Taken Unknown] furosemide 40 mg tablet 40 mg PO BID PRN 12/16/22 [History Last Taken Unknown] insulin glargine 100 unit/mL (3 mL) subcutaneous pen (Lantus Solostar U-100 Insulin) 26 unit subcut QHS 12/16/22 [History Last Taken Unknown] levothyroxine 200 mcg tablet 200 mcg PO DAILY 12/16/22 [History Last Taken Unknown] levothyroxine 25 mcg tablet 25 mcg PO DAILY 12/16/22 [History Last Taken Unknown] meclizine 25 mg tablet 25 mg PO DAILY PRN 12/16/22 [History Last Taken Unknown] nirmatrelvir 300 mg (150 mg x2)-ritonavir 100 mg tablet,dose pack (Paxlovid) See Rx Instructions PO .COMPLEX #30 tabs 12/16/22 [Rx Last Taken Unknown] ondansetron HCl 4 mg tablet 4 mg PO Q8H PRN nausea and vomiting 12/16/22 [History Last Taken Unknown] potassium chloride 20 mEq tablet,extended release(part/cryst) 20 meq PO DAILY PRN 12/16/22 [History Last Taken Unknown] sucralfate 1 gram tablet 1 g PO TID PRN 12/16/22 [History Last Taken Unknown] Allergy/AdvReac Type Severity Reaction Status Date / Time ciprofloxacin [From Cipro] Allergy Itching Verified 12/16/22 00:27 ciprofloxacin HCl Allergy Unknown Verified 12/16/22 00:27 [From Cipro] metronidazole [From Flagyl] Allergy Anaphylaxis Verified 12/16/22 00:27 Penicillins Allergy swelling Verified 12/16/22 00:27 (when she was an infant) erythromycin base AdvReac Nausea Verified 12/16/22 00:27 [Erythromycin Base] meloxicam [From Mobic] AdvReac elevates BP Verified 12/16/22 00:27 oxycodone AdvReac Itching Verified 12/16/22 00:27 Tetracyclines AdvReac Nausea Verified 12/16/22 00:27 Social History Smoking Status: Former smoker EXAM Physical Exam Const Vital Signs: 12/16/22 00:28 12/16/22 00:31 12/16/22 01:30 Temperature 99 F Temperature Source Temporal Pulse Rate 87 Respiratory Rate 24 H Respiratory Pattern Tachypnea Blood Pressure 129/63 H 102/81 H Blood Pressure Mean 85 Pulse Ox 99 98 Oxygen Delivery Method Room Air Positive well nourished, well developed and obese General Appearance ED: well developed and NAD Nutritional Appearance: obese HEENT Reports moist mucous membranes normocephalic and atraumatic Eyes PERRL and EOMs intact bilaterally Neck no lymphadenopathy, supple and no meningeal signs Resp normal respiratory effort and clear to auscultation bilaterally Cardio no murmurs Rate: regular rate; Negative for tachycardic Rhythm: regular rhythm Neuro oriented x3, CN's II-XII intact bilaterally and no sensory deficits noted Sensorium / Orientation: alert Motor Exam: strength 5/5 throughout Skin Lesions: no lesions Rashes: no rashes MDM MDM MDM Narrative Medical decision making narrative: Vital signs are normal including pulse ox 99% on room air. She states basically she is here requesting Paxlovid. She is vaccinated she has had 4 vaccine injections. She understands that the risk is low and desires Paxlovid anyway given her risk factors, will be given a prescription and advised to hold her atorvastatin, after reviewing her entire list of medications it is okay to continue the others. Discharge Plan Triage Chief Complaint: Shortness of Breath Other Complaint: Cough Fever ED Provider: Rickie León Dx/Rx/DC Orders Clinical Impression: COVID-19 Instructions: Coronavirus Disease 2019 (COVID-19): Caring for Yourself or Others Prescriptions: New Paxlovid 300 mg (150 mg x 2)-100 mg tablets,dose pack See Rx Instructions .ROUTE .COMPLEX Qty: 30 0RF Rx Instructions: take TWO 150 mg tablets of nirmatrelvir with ONE 100 mg tablet of ritonavir twice daily for 5 days Continued celecoxib 200 MG capsule 100 mg PO BID Patient Comments: arthritis aspirin 81 MG tablet,chewable 81 mg PO DAILY@0800 Patient Comments: heart health metformin 500 MG tablet 500 mg PO BREAKFAST Patient Comments: diabetes lansoprazole [Prevacid] 30 MG capsule 30 mg PO DAILY bupropion HCl [Wellbutrin SR] 150 MG tablet sustained-release 12 hr 150 mg PO BID losartan 100 MG tablet 100 mg PO DAILY loperamide [Anti-Diarrheal (loperamide)] 2 MG tablet 2 mg PO DAILY PRN PRN (Reason: Diarrhea) carvedilol 12.5 mg tablet 12.5 mg PO BID Rx Instructions: 25mg morning 12.5mg HS chlorthalidone 25 mg Tablet 12.5 mg PO DAILY famotidine 20 mg Tablet 20 mg PO QHS loratadine [Claritin] 10 mg Tablet 10 mg PO DAILY cephalexin 500 mg capsule 500 mg PO Q6H 10 Days Qty: 40 0RF levothyroxine 25 mcg tablet 25 mcg PO DAILY levothyroxine 200 mcg tablet 200 mcg PO DAILY insulin glargine [Lantus Solostar U-100 Insulin] 100 unit/mL (3 mL) insulin pen 26 unit SUBCUT QHS sucralfate 1 gram tablet 1 g PO TID PRN Patient Comments: TAKE 1 TABLET BY MOUTH FOUR TIMES A DAY furosemide 40 mg tablet 40 mg PO BID PRN meclizine 25 mg tablet 25 mg PO DAILY PRN ondansetron HCl 4 mg tablet 4 mg PO Q8H PRN (Reason: nausea and vomiting) Patient Comments: TAKE 1 TABLET BY MOUTH EVERY 8 HOURS NEEDED FOR NAUSEA AND VOMITING potassium chloride 20 mEq tablet,ER particles/crystals 20 meq PO DAILY PRN albuterol 90 mcg/actuation aerosol 90 mcg inhalation TID PRN Held atorvastatin 40 MG tablet 40 mg PO QHS Hold Instructions: Resume on 12/24/22. Primary Care Provider: Lazarus Arcos Referrals: Lazarus Arcos MD [Primary Care Provider] - As Needed Activity Restrictions/Additional Instructions: Try to get a home portable pulse oximeter and closely watch your oxygen levels periodically. If you stay below 90% for more than a minute or so, and/or you are feeling like your breathing is getting worse, return to the emergency department for further evaluation. Currently, CDC recommendations state that you should stay home through day 5 of symptoms, then as long as symptoms are improving, if you need to go to work or somewhere else you may for days 6-10 as long as you are wearing a mask the entire time. If you are feeling better after day 10 you may resume life is normal. Disposition Disposition: Home, Self Care
[2022-12-16 01:30] VITALS: BP 102/81; O2SAT 98
== END 2022-12-16 01:56 | disposition home or self-care (01) ==
PROVIDERS: Emergency Provider Emergency Medicine; PCP Internal Medicine; Visit Provider Emergency Medicine
DX: U07.1 COVID-19 (principal); E11.9 Type 2 diabetes mellitus without complications; Z79.4 Long term (current) use of insulin; I10 Essential (primary) hypertension; E03.9 Hypothyroidism, unspecified; K21.9 Gastro-esophageal reflux disease without esophagitis; E66.9 Obesity, unspecified; Z79.82 Long term (current) use of aspirin; Z79.84 Long term (current) use of oral hypoglycemic drugs; Z79.890 Hormone replacement therapy; Z79.899 Other long term (current) drug therapy; Z87.891 Personal history of nicotine dependence
CPT/HCPCS: 99283